=== PATIENT | male | born 1980 | race Hispanic/Latino ===

== ENCOUNTER 2018-10-27 13:30 | Outpatient (CLI) | payer BC ==
--- NOTE | 2018-10-27 14:54 | RAD ---
LUMBAR SPINE MINIMUM 4 VIEWS: HISTORY: M54.16, lumbar radiculopathy; M54.5, low back pain. COMPARISON: MRI same day. FINDINGS: No acute fracture or malalignment. Vertebral body heights and disk spaces are maintained. No listhe sis. No translation with flexion or extension. IMPRESSION: Unremarkable exam. POS: [facility]
--- NOTE | 2018-10-27 15:27 | MRI ---
MRI LUMBAR SPINE WITHOUT IV CONTRAST: DATE: 10/27/2018. HISTORY: Lumbar radiculopathy. The patient states bilateral leg weakness following a 3-hour flight. COMPARISON: None available. FINDINGS: Visualized retroperitoneal structures demonstrate a normal MRI appearance. Conus medullaris is normal in appearance and terminates at the T12-L1 level. Normal signal intensity is demonstrated in the bone marrow. L1-2 level: There is no disk bulge or disk herniation. Central spinal canal and neural foramen are patent. L2-3 level: There is no disk bulge or disk herniation. Central spinal canal and neural foramen are patent. L3-4 level: There is no disk bulge or disk herniation. Central spinal canal and neural foramen are patent. L4-5 level: There is no disk bulge or disk herniation. Central spinal canal and neural foramen are patent. L5-S1 level: There is no disk bulge or disk herniation. Central spinal canal and neural foramen are patent. Facet hypertrophic changes are seen bilaterally and there are increased T2 weighted signal intensity foci seen posterior to each facet joint measuring less than 1 cm and are likely attributabl e to synovial cysts. There is generally small caliber of the central spinal canal secondary to congenitally short pedicles . Paravertebral soft tissues are within normal limits. 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 However, there is no significant i ntradural or extradural defect seen. Neural foramina are widely patent at all levels. POS: [facility]
== END 2018-10-27 13:31 | disposition home or self-care (01) ==
LOC: TBSIIMAG 13:30
PROVIDERS: ATTEND Physician Assistant Surgical
DX: M54.16 Radiculopathy, lumbar region (principal); M48.061 Spinal stenosis, lumbar region without neurogenic claudication
CPT/HCPCS: 72110; 72148

== ENCOUNTER 2021-12-27 15:30 | Outpatient (CLI) | payer BC | END 2021-12-27 15:31 | disposition home or self-care (01) | LOC: CTENTCT 15:30 | PROVIDERS: ATTEND Otolaryngology Plastic Surgery within the Head & Neck | DX: J32.9 Chronic sinusitis, unspecified (principal) | CPT/HCPCS: 70486 ==

== ENCOUNTER 2022-01-18 09:16 | Outpatient (CLI) | payer BC ==
[2022-01-18 16:01] LABS: SARS-CoV-2 PCR by NAA Not Detected (NotDetected)
== END 2022-01-18 09:17 | disposition home or self-care (01) ==
LOC: LABBT 09:16
PROVIDERS: ATTEND Otolaryngology Plastic Surgery within the Head & Neck
DX: Z01.818 Encounter for other preprocedural examination (principal); Z20.822 Contact with and (suspected) exposure to COVID-19
CPT/HCPCS: 93005; 93010; U0003; U0005

== ENCOUNTER 2022-01-23 07:52 | Day surgery (SDC) | payer BC ==
[2022-01-21 10:36] VITALS: BMI 35.4
[2022-01-23] MEDS ORDERED: AFRIN NASAL MIST 15 ML BOT ONE ×2 (09:00→09:43)
[2022-01-23] MEDS ORDERED: Lidocaine 1% w/Epinephrine 1:100K 20 ML VIAL ONE (09:43)
[2022-01-23] MEDS ORDERED: Midazolam HCl 2 mg/2 ml Vial ONE (09:46)
[2022-01-23] MEDS ORDERED: fentaNYL Citrate/PF 100 MCG/2 ML SYRINGE ONE ×3 (09:46→11:24)
[2022-01-23] MEDS ORDERED: Dexamethasone 20 MG/5 ML VIAL ONE (10:12)
[2022-01-23] MEDS ORDERED: PROPOFOL 200 MG/20 ML VIAL ONE (10:12)
[2022-01-23] MEDS ORDERED: PHENYLEPHRINE-NS 100 MCG/ML 10 ML SYRINGE ONE (10:12)
[2022-01-23] MEDS ORDERED: Ondansetron PF 4 MG/2 ML Vial ONE (10:12)
[2022-01-23] MEDS ORDERED: Lidocaine 1% PF 5 ML VIAL ONE (10:12)
== END 2022-01-23 13:05 | disposition home or self-care (01) ==
LOC: SDC 07:52
PROVIDERS: ATTEND Otolaryngology Plastic Surgery within the Head & Neck
PROC: 09BT8ZZ Excision of Left Frontal Sinus, Via Natural or Artificial Opening Endoscopic (ICD-10-PCS; principal; 2022-01-23)
PROC: 09TV8ZZ Resection of Left Ethmoid Sinus, Via Natural or Artificial Opening Endoscopic (ICD-10-PCS; principal; 2022-01-23)
PROC: 099X8ZZ Drainage of Left Sphenoid Sinus, Via Natural or Artificial Opening Endoscopic (ICD-10-PCS; principal; 2022-01-23)
PROC: 099W8ZZ Drainage of Right Sphenoid Sinus, Via Natural or Artificial Opening Endoscopic (ICD-10-PCS; principal; 2022-01-23)
PROC: 8E09XBZ Computer Assisted Procedure of Head and Neck Region (ICD-10-PCS; principal; 2022-01-23)
PROC: 09SM0ZZ Reposition Nasal Septum, Open Approach (ICD-10-PCS; principal; 2022-01-23)
PROC: 099Q8ZZ Drainage of Right Maxillary Sinus, Via Natural or Artificial Opening Endoscopic (ICD-10-PCS; principal; 2022-01-23)
PROC: 099R8ZZ Drainage of Left Maxillary Sinus, Via Natural or Artificial Opening Endoscopic (ICD-10-PCS; principal; 2022-01-23)
PROC: 09TU8ZZ Resection of Right Ethmoid Sinus, Via Natural or Artificial Opening Endoscopic (ICD-10-PCS; principal; 2022-01-23)
PROC: 099S8ZZ Drainage of Right Frontal Sinus, Via Natural or Artificial Opening Endoscopic (ICD-10-PCS; principal; 2022-01-23)
PROC: 09TL0ZZ Resection of Nasal Turbinate, Open Approach (ICD-10-PCS; principal; 2022-01-23)
DX: J32.4 Chronic pansinusitis (principal); J33.8 Other polyp of sinus; J34.2 Deviated nasal septum; J34.3 Hypertrophy of nasal turbinates; J34.89 Other specified disorders of nose and nasal sinuses; G50.1 Atypical facial pain; G35 Multiple sclerosis; Z86.16 Personal history of COVID-19; Z79.2 Long term (current) use of antibiotics; Z79.899 Other long term (current) drug therapy; Z91.013 Allergy to seafood
CPT/HCPCS: J1100; J2250; J2405; J2704

== ENCOUNTER 2023-04-04 19:01 | Inpatient (IN) | payer BC ==
[2023-04-04 20:06] LABS: #Eosinphils 0.2 thou/uL (0.0-0.7); #Monocytes 0.6 thou/uL (0.11-0.59); #Neutrophils 5.1 thou/uL (1.40-6.50); %Basophils 0.6 % (0.0-1.0); %Eosinophils 2.6 % (0.0-10.0); %Lymphocytes 8.6 % (21.0-51.0); %Monocytes 9.7 % (0.0-10.0); %Neutrophils 77.6 % (42.0-75.0); Hemoglobin 15.2 g/dL (14.0-18.0); Mean Corpuscular Hemoglobin 28.7 pg (27.0-31.0); Mean Corpuscular Volume 84.3 fl (78.0-98.0); Mean Platelet Volume 9.2 fL (7.4-10.4); Platelet Count 254 10x3/uL (130-400); RBC Distribution Width 14.5 % (11.5-14.5); White Blood Cell (WBC) Count 6.6 10x3/uL (4.8-10.8)
[2023-04-04 20:18] LABS: Actual Bicarbonate (HCO3v) 23.8 mEq/L (22-28); Base Excess -1.3 mEq/L (-2.0 to +3.0); Calcium, Ionized (venous) 1.05 mmol/L (1.16-1.32); Chloride (VBG) 95 mmol/L (98-106); Hematocrit-VBG 47 % (42.0-52.0); Potassium (VBG) 3.65 mmol/L (3.70-5.30); Sodium 132.2 mmol/L (133-146); pH (venous) 7.381 (7.32-7.43)
[2023-04-04 20:30] LABS: Acetaminophen Less than 10 mcg/mL (10.0-30.0); Alcohol Less than 10.0 mg/dL (Less than 10); Salicylate Less than 8.0 mg/dL (15.0-30.0)
[2023-04-04 20:31] LABS: ALT (SGPT) 81 U/L (8-55); AST (SGOT) 45 U/L (5-34); Albumin 3.9 g/dL (3.5-5.0); Alkaline Phosphatase 74 U/L (40-110); Anion Gap 16 mmol/L (10-20); BUN (Urea Nitrogen) 12 mg/dL (8.9-20.6); Bilirubin, Total 0.3 mg/dL (0.2-1.2); Calc. Creatinine Clearance 0 mL/min (70-130); Calcium 8.4 mg/dL (7.8-10.44); Carbon Dioxide 23 mmol/L (22-29); Chloride 97 mmol/L (98-107); Estimated GFR 109; Globulin 2.9 g/dL (2.4-3.5); Glucose 210 mg/dL (70-105); Potassium 4.4 mmol/L (3.5-5.1); Protein, Total 6.8 g/dL (6.0-8.3); Sodium 132 mmol/L (136-145)
[2023-04-04] MEDS ORDERED: LEVETIRACETAM SLOW IVP SCH (20:45)
[2023-04-04] MEDS ORDERED: SODIUM CHLORIDE 0.9% SLOW IVP SCH (20:45)
[2023-04-04 21:42] LABS: Bacteria/HPF None Seen HPF (None Seen); Bilirubin Negative (Negative); Blood, Urine Negative (Negative); CAUTI Indications for Culture Alt mental st,lethar; Clarity Clear (Clear); Glucose, Urine (Dipstick) Greater than 1000 mg/dL (Negative); Ketone, Urine Trace mg/dL (Negative); Leukocyte Negative Leu/uL (Negative); Nitrite Negative (Negative); Protein, Urine (Dipstick) 30 mg/dL (Neg-Trace); RBC/HPF 0-3 HPF (0-3); Specific Gravity, Urine 1.019 (1.002-1.036); Squamous Epithelial None Seen HPF (0-3); Urobilinogen Normal mg/dL (Less than 2); WBC/HPF 0-3 HPF (0-3); pH, Urine 6.5 (5.0-9.0)
[2023-04-04 21:45] LABS: Amphetamine Not Detected (NotDetected); Barbiturates Screen Not Detected (NotDetected); Benzodiazepine Screen Detected (NotDetected); Cocaine Metabolite Screen Not Detected (NotDetected); Methadone Not Detected (NotDetected); Methamphetamine Not Detected (NotDetected); Opiate Screen Not Detected (NotDetected); Oxycodone Screen Not Detected (NotDetected); Phencyclidine (PCP) Not Detected (NotDetected); THC/Cannabinoid Screen Not Detected (NotDetected); Tricyclic Screen Not Detected (NotDetected)
[2023-04-04 21:46] LABS: Urine Culture Reflex No No
[2023-04-04] MEDS ORDERED: Acetaminophen 325 MG TAB PO PRN (23:16)
[2023-04-04] MEDS ORDERED: Ondansetron PF 4 MG/2 ML Vial IVP PRN (23:16)
[2023-04-04] MEDS ORDERED: Lorazepam 2 MG/ML VIAL SLOW IVP PRN ×2 (23:17→23:29)
[2023-04-05] MEDS ORDERED: Dexamethasone 4 MG TAB PO SCH ×2 (00:15→09:00)
[2023-04-05 01:23] VITALS: BMI 36.7
[2023-04-05] MEDS ORDERED: HumaLOG 300 UNITS/3 ML VIAL SC PRN ×2 (04:11)
[2023-04-05] MEDS ORDERED: Glucagon 1 MG/ML KIT IM PRN (04:11)
[2023-04-05] MEDS ORDERED: Dextrose 5% in Water 1,000 ML IV PRN (04:11)
[2023-04-05] MEDS ORDERED: Dextrose 50% Abboject 50 ML SYRINGE SLOW IVP PRN (04:11)
[2023-04-05 05:42] LABS: #Eosinphils 0.1 thou/uL (0.0-0.7); #Monocytes 0.7 thou/uL (0.11-0.59); #Neutrophils 5.4 thou/uL (1.40-6.50); %Basophils 0.5 % (0.0-1.0); %Eosinophils 0.9 % (0.0-10.0); %Lymphocytes 6.8 % (21.0-51.0); %Monocytes 10.3 % (0.0-10.0); Hemoglobin 15.2 g/dL (14.0-18.0); Mean Corpuscular HGB CONC 33.9 g/dL (32.0-36.0); Mean Corpuscular Hemoglobin 28.7 pg (27.0-31.0); Mean Corpuscular Volume 84.5 fl (78.0-98.0); Mean Platelet Volume 9.3 fL (7.4-10.4); Platelet Count 249 10x3/uL (130-400); RBC Distribution Width 14.5 % (11.5-14.5); White Blood Cell (WBC) Count 6.6 10x3/uL (4.8-10.8)
[2023-04-05 05:58] LABS: Hemoglobin A1c 8.3 % (4.0-6.0)
[2023-04-05 06:10] LABS: Anion Gap 12 mmol/L (10-20); BUN (Urea Nitrogen) 9 mg/dL (8.9-20.6); Calc. Creatinine Clearance 217 mL/min (70-130); Calcium 8.7 mg/dL (7.8-10.44); Carbon Dioxide 24 mmol/L (22-29); Chloride 101 mmol/L (98-107); Estimated GFR 117; Glucose 174 mg/dL (70-105); Potassium 3.9 mmol/L (3.5-5.1); Sodium 133 mmol/L (136-145)
[2023-04-05 06:13] LABS: ALT (SGPT) 76 U/L (8-55); AST (SGOT) 39 U/L (5-34); Albumin 3.9 g/dL (3.5-5.0); Alkaline Phosphatase 67 U/L (40-110); Bilirubin, Direct 0.2 mg/dL (0.1-0.3); Bilirubin, Total 0.4 mg/dL (0.2-1.2)
[2023-04-05] MEDS: levETIRAcetam 500 MG TAB PO SCH ×2 (09:05→21:17)
[2023-04-05] MEDS ORDERED: Sodium Chloride 0.9% 1,000 ML IV SCH (11:15)
[2023-04-05] MEDS ORDERED: Iopamidol-370 76% 500 ML MDV (1 ML CHARGE) ONE (11:57)
[2023-04-05 16:23] LABS: CSF, Glucose 81 mg/dl (40-70); CSF, Protein 93 mg/dL (15-40)
[2023-04-05 17:01] LABS: Ref Lab Test Ordered ACE CSF; Reference Lab Name LABCORP
[2023-04-05 17:08] LABS: CSF Source CSF; Clarity Clear (Clear); Tube # 4
[2023-04-05 18:07] LABS: Ref Lab Test Ordered CMV PCR CSF; Reference Lab Name LABCORP
[2023-04-06 06:01] LABS: #Monocytes 0.8 thou/uL (0.11-0.59); #Neutrophils 5.7 thou/uL (1.40-6.50); %Basophils 0.3 % (0.0-1.0); %Eosinophils 0.4 % (0.0-10.0); %Lymphocytes 11.3 % (21.0-51.0); %Monocytes 10.3 % (0.0-10.0); %Neutrophils 77.3 % (42.0-75.0); Hemoglobin 14.8 g/dL (14.0-18.0); Mean Corpuscular HGB CONC 34.3 g/dL (32.0-36.0); Mean Corpuscular Hemoglobin 28.9 pg (27.0-31.0); Mean Corpuscular Volume 84.2 fl (78.0-98.0); Mean Platelet Volume 9.2 fL (7.4-10.4); Platelet Count 263 10x3/uL (130-400); RBC Distribution Width 14.6 % (11.5-14.5); Red Blood Cell (RBC) Count 5.12 mill/uL (4.70-6.10); White Blood Cell (WBC) Count 7.4 10x3/uL (4.8-10.8)
[2023-04-06 06:25] LABS: Anion Gap 9 mmol/L (10-20); BUN (Urea Nitrogen) 10 mg/dL (8.9-20.6); Calc. Creatinine Clearance 226 mL/min (70-130); Calcium 8.7 mg/dL (7.8-10.44); Carbon Dioxide 26 mmol/L (22-29); Chloride 102 mmol/L (98-107); Estimated GFR 119; Glucose 170 mg/dL (70-105); Potassium 3.9 mmol/L (3.5-5.1); Sodium 133 mmol/L (136-145)
[2023-04-06] MEDS: levETIRAcetam 500 MG TAB PO SCH ×2 (10:30→21:38)
[2023-04-06 12:54] LABS: Ref Lab Test Ordered MTB DNA PCR CSF; Reference Lab Name LABCORP
[2023-04-07 04:59] LABS: #Basophils 0.1 thou/uL (0.0-0.2); #Eosinphils 0.2 thou/uL (0.0-0.7); #Monocytes 0.8 thou/uL (0.11-0.59); #Neutrophils 4.3 thou/uL (1.40-6.50); %Basophils 0.8 % (0.0-1.0); %Lymphocytes 11.7 % (21.0-51.0); %Monocytes 12.7 % (0.0-10.0); Hemoglobin 15.1 g/dL (14.0-18.0); Mean Corpuscular HGB CONC 33.7 g/dL (32.0-36.0); Mean Platelet Volume 9.4 fL (7.4-10.4); Platelet Count 285 10x3/uL (130-400); RBC Distribution Width 14.9 % (11.5-14.5); Red Blood Cell (RBC) Count 5.21 mill/uL (4.70-6.10); White Blood Cell (WBC) Count 6.1 10x3/uL (4.8-10.8)
[2023-04-07 05:30] LABS: Anion Gap 11 mmol/L (10-20); BUN (Urea Nitrogen) 10 mg/dL (8.9-20.6); Calc. Creatinine Clearance 220 mL/min (70-130); Calcium 8.8 mg/dL (7.8-10.44); Carbon Dioxide 25 mmol/L (22-29); Chloride 101 mmol/L (98-107); Estimated GFR 118; Glucose 135 mg/dL (70-105); Potassium 3.5 mmol/L (3.5-5.1); Sodium 133 mmol/L (136-145)
[2023-04-07] MEDS: levETIRAcetam 500 MG TAB PO SCH ×2 (10:56→20:38)
[2023-04-08] MEDS: levETIRAcetam 500 MG TAB PO SCH ×2 (08:37→21:10)
[2023-04-09 01:13] LABS: CMV DNA-PCR Test Negative (Negative)
[2023-04-09] MEDS: levETIRAcetam 500 MG TAB PO SCH ×2 (10:28→21:17)
[2023-04-09 12:38] LABS: ANA Symphony (Qualitative) Negative (Negative); ANA Symphony (Quantitative) 0.3 Ratio (< 0.7 Negative); dsDNA IgG Antibody Less than 0.6 IU/mL (<10 Negative)
[2023-04-09] MEDS ORDERED: Sodium Bicarbonate 2.5 MEQ/5 ML VIAL ONE (13:30)
[2023-04-09 14:12] LABS: QuantiFERON-TB Gold Plus Negative (Negative)
[2023-04-09 16:31] LABS: CSF Source CSF; Clarity Clear (Clear); Tube # 2
[2023-04-10] MEDS: levETIRAcetam 500 MG TAB PO SCH (09:23)
[2023-04-10 16:20] VITALS: BP 147/94; TEMP 98.9
== END 2023-04-10 18:11 | disposition home or self-care (01) | DRG 97 ==
LOC: ERS 19:01 → 2SE 22:22 → OBSVTOIN 04-05 13:08
PROVIDERS: ADMIT Internal Medicine; ATTEND Family Medicine
PROC: 4A043R1 Measurement of Venous Saturation, Peripheral, Percutaneous Approach (ICD-10-PCS; 2023-04-04)
PROC: 009U3ZX Drainage of Spinal Canal, Percutaneous Approach, Diagnostic (ICD-10-PCS; principal; 2023-04-09)
PROC: B01BZZZ Fluoroscopy of Spinal Cord (ICD-10-PCS; 2023-04-09)
DX: G03.9 Meningitis, unspecified (principal); G93.6 Cerebral edema; H46.9 Unspecified optic neuritis; G35 Multiple sclerosis; H54.62 Unqualified visual loss, left eye, normal vision right eye; R59.0 Localized enlarged lymph nodes; E11.65 Type 2 diabetes mellitus with hyperglycemia; Z91.013 Allergy to seafood; Z88.8 Allergy status to other drugs, medicaments and biological substances; Z80.51 Family history of malignant neoplasm of kidney; Z79.899 Other long term (current) drug therapy; G40.409 Other generalized epilepsy and epileptic syndromes, not intractable, without status epilepticus
CPT/HCPCS: 36415; 36416; 62270; 70450; 71045; 71260; 74177; 80048; 80053; 80076; 80306; 80307; 81001; 82164; 82175; 82787; 82805; 82945; 83036; 83655; 83825; 83873; 83880; 83916; 84157; 85025; 85652; 86038; 86140; 86160; 86225; 86480; 86592; 86612; 86635; 86698; 87070; 87116; 87205; 87206; 87252; 87497; 87529; 87899; 88112; 88184; 89051; 93005; 96365; J1815; J1953; J3490; J7050; J8540; Q9967

== ENCOUNTER 2023-04-25 09:16 | Outpatient (CLI) | payer BC ==
[2023-04-25] MEDS ORDERED: Magnevist 469MG/ML 20 ML VIAL ONE (11:30)
== END 2023-04-25 09:17 | disposition home or self-care (01) ==
LOC: MRI 09:16
PROVIDERS: ATTEND Neurological Surgery
DX: D49.6 Neoplasm of unspecified behavior of brain (principal)
CPT/HCPCS: 70553; A9579

== ENCOUNTER 2023-04-28 07:44 | Inpatient (IN) | payer BC ==
[2023-04-28] MEDS ORDERED: Bacitracin Zinc Ointment 30 gm TUBE ONE (08:51)
[2023-04-28] MEDS ORDERED: Vancomycin 1 GM VIAL ONE (08:51)
[2023-04-28] MEDS ORDERED: Thrombin 5000 UNITS/5 ML VIAL ONE (08:51)
[2023-04-28] MEDS ORDERED: Lidocaine 1% (PF) 30 ML VIAL ONE (08:51)
[2023-04-28] MEDS ORDERED: EPINEPHrine 1 MG/ML AMP ONE (08:51)
[2023-04-28] MEDS ORDERED: HYDROcodone/Acetaminophen 7.5/325 mg Tablet PO PRN (09:18)
[2023-04-28] MEDS ORDERED: Acetaminophen 325 MG TAB PO PRN (09:18)
[2023-04-28] MEDS ORDERED: Docusate 100 MG CAP PO PRN (09:18)
[2023-04-28] MEDS ORDERED: diphenhydrAMINE 50 MG/ML VIAL IVP PRN (09:18)
[2023-04-28] MEDS ORDERED: Promethazine HCl 25 MG/ML VIAL IM PRN (09:18)
[2023-04-28] MEDS ORDERED: Labetalol HCl 100 MG/20 ML VIAL SLOW IVP PRN ×2 (09:18→09:41)
[2023-04-28] MEDS ORDERED: Ondansetron PF 4 MG/2 ML Vial IVP PRN (09:18)
[2023-04-28] MEDS ORDERED: hydrALAZINE 20 MG/ML VIAL SLOW IVP PRN (09:18)
[2023-04-28] MEDS ORDERED: fentaNYL PF 100 MCG/2 ML SYRINGE ONE (09:40)
[2023-04-28] MEDS ORDERED: CEFAZOLIN 2 GM VIAL ONE (09:50)
[2023-04-28] MEDS ORDERED: Sodium Chloride 0.9% 100 ML ONE (09:50)
[2023-04-28] MEDS ORDERED: Ondansetron PF 4 MG/2 ML Vial ONE (10:10)
[2023-04-28] MEDS ORDERED: Lidocaine 1% PF 5 ML VIAL ONE (10:10)
[2023-04-28] MEDS ORDERED: Dexamethasone 20 MG/5 ML VIAL ONE (10:10)
[2023-04-28] MEDS ORDERED: PROPOFOL 200 MG/20 ML VIAL ONE (10:10)
[2023-04-28] MEDS ORDERED: Rocuronium Bromide 10 MG/ML (10ML VIAL) ONE ×2 (10:10)
[2023-04-28] MEDS ORDERED: Phenylephrine 10 MG/ML VIAL ONE (11:42)
[2023-04-28] MEDS ORDERED: fentaNYL 50 mcg/mL 1 mL Vial ONE ×3 (12:32→14:09)
[2023-04-28] MEDS ORDERED: SUGAMMADEX SODIUM 200 MG/2 ML VIAL ONE (13:15)
[2023-04-28] MEDS: Sodium Chloride 0.9% 1,000 ML IV SCH ×2 (14:26→16:20)
[2023-04-28 15:40] VITALS: BMI 36.1
[2023-04-28] MEDS: HYDROcodone/Acetaminophen 10/325 mg Tablet PO PRN ×2 (16:44→21:13)
[2023-04-28] MEDS: CEFAZOLIN 2 GM in Sodium Chloride 0.9% 100 ML IVPB SCH (17:31)
[2023-04-28] MEDS: hydrALAZINE 20 MG/ML VIAL SLOW IVP PRN ×2 (17:51→21:49)
[2023-04-28] MEDS: Morphine 2 MG/ML VIAL SLOW IVP PRN (19:48)
[2023-04-28] MEDS: levETIRAcetam 500 MG TAB PO SCH (21:13)
[2023-04-28] MEDS ORDERED: Dextrose 50% Abboject 50 ML SYRINGE SLOW IVP PRN (22:09)
[2023-04-28] MEDS ORDERED: HumaLOG 300 UNITS/3 ML VIAL SC PRN (22:09)
[2023-04-28] MEDS ORDERED: Glucagon 1 MG/ML KIT IM PRN (22:09)
[2023-04-28] MEDS ORDERED: Dextrose 5% in Water 1,000 ML IV PRN (22:09)
[2023-04-29] MEDS: Morphine 2 MG/ML VIAL SLOW IVP PRN (00:14)
[2023-04-29] MEDS: CEFAZOLIN 2 GM in Sodium Chloride 0.9% 100 ML IVPB SCH (02:07)
[2023-04-29] MEDS: HYDROcodone/Acetaminophen 10/325 mg Tablet PO PRN (06:16)
[2023-04-29 07:23] LABS: #Monocytes 1.5 thou/uL (0.11-0.59); #Neutrophils 7.3 thou/uL (1.40-6.50); %Basophils 0.3 % (0.0-1.0); %Eosinophils 0.3 % (0.0-10.0); %Lymphocytes 7.5 % (21.0-51.0); %Monocytes 15.3 % (0.0-10.0); %Neutrophils 76.3 % (42.0-75.0); Hematocrit 42.4 % (42.0-52.0); Hemoglobin 14.4 g/dL (14.0-18.0); Mean Corpuscular Hemoglobin 28.8 pg (27.0-31.0); Mean Corpuscular Volume 84.8 fl (78.0-98.0); Mean Platelet Volume 9.2 fL (7.4-10.4); Platelet Count 241 10x3/uL (130-400); RBC Distribution Width 14.9 % (11.5-14.5); White Blood Cell (WBC) Count 9.6 10x3/uL (4.8-10.8)
[2023-04-29 07:40] LABS: Hemoglobin A1c 7.6 % (4.0-6.0)
[2023-04-29 07:45] LABS: Anion Gap 12 mmol/L (10-20); BUN (Urea Nitrogen) 9 mg/dL (8.9-20.6); Calc. Creatinine Clearance 233 mL/min (70-130); Calcium 8.7 mg/dL (7.8-10.44); Carbon Dioxide 22 mmol/L (22-29); Chloride 103 mmol/L (98-107); Estimated GFR 121; Glucose 111 mg/dL (70-105); Potassium 3.8 mmol/L (3.5-5.1); Sodium 133 mmol/L (136-145)
[2023-04-29] MEDS: levETIRAcetam 500 MG TAB PO SCH (08:33)
[2023-04-29 09:52] VITALS: BP 110/74
[2023-04-29 12:26] VITALS: TEMP 98.8
== END 2023-04-29 12:25 | disposition home or self-care (01) | DRG 26 ==
LOC: SURG A 07:44 → CCU 14:32
PROVIDERS: ADMIT Neurological Surgery; ATTEND Neurological Surgery
PROC: 00B00ZX Excision of Brain, Open Approach, Diagnostic (ICD-10-PCS; principal; 2023-04-28)
DX: G03.9 Meningitis, unspecified (principal); G82.20 Paraplegia, unspecified; G35 Multiple sclerosis; Z79.899 Other long term (current) drug therapy; E11.9 Type 2 diabetes mellitus without complications; G89.29 Other chronic pain; Z98.890 Other specified postprocedural states; Z82.49 Family history of ischemic heart disease and other diseases of the circulatory system; G40.909 Epilepsy, unspecified, not intractable, without status epilepticus; G43.909 Migraine, unspecified, not intractable, without status migrainosus; D49.6 Neoplasm of unspecified behavior of brain
CPT/HCPCS: 36415; 36416; 70553; 80048; 83036; 85025; 87070; 87102; 87116; 87205; 87206; 88307; 88312; 88325; A9579; C1713; J0171; J0360; J1100; J2001; J2272; J2370; J2405; J2704; J3010; J3370; J3490; J7050

== ENCOUNTER 2024-02-04 11:44 | Outpatient (CLI) | payer BC | END 2024-02-04 11:45 | disposition home or self-care (01) | LOC: BICRAD 11:44 | PROVIDERS: ATTEND Family Medicine | DX: J20.9 Acute bronchitis, unspecified (principal) | CPT/HCPCS: 71046 ==

== ENCOUNTER 2024-02-28 14:51 | Inpatient (IN) | payer BC ==
[2024-02-28] MEDS ORDERED: Meclizine HCl 25 MG TAB ONE (16:07)
[2024-02-28 16:15] LABS: #Basophils Less than 0.03 10x3/uL (0.0-0.2); %Basophils 0.4 % (0.0-1.0); %Lymphocytes 17.3 % (21.0-51.0); %Monocytes 14.6 % (0.0-10.0); %Neutrophils 64.1 % (42.0-75.0); Hematocrit 43.9 % (42.0-52.0); Hemoglobin 15.5 g/dL (14.0-18.0); Mean Corpuscular HGB CONC 35.3 g/dL (32.0-36.0); Mean Corpuscular Volume 85.1 fL (78.0-98.0); Mean Platelet Volume 9.1 fL (7.4-10.4); Platelet Count 225 10x3/uL (130-400); Red Blood Cell (RBC) Count 5.16 mill/uL (4.70-6.10)
[2024-02-28 16:29] LABS: ALT (SGPT) 45 U/L (8-55); AST (SGOT) 23 U/L (5-34); Albumin 3.7 g/dL (3.5-5.0); Alkaline Phosphatase 55 U/L (40-110); Anion Gap 16 mmol/L (10-20); BUN (Urea Nitrogen) 16 mg/dL (8.9-20.6); Bilirubin, Total 0.4 mg/dL (0.2-1.2); Calc. Creatinine Clearance 0 mL/min (70-130); Calcium 8.9 mg/dL (7.8-10.44); Carbon Dioxide 21 mmol/L (22-29); Chloride 100 mmol/L (98-107); Estimated GFR 113; Globulin 3.5 g/dL (2.4-3.5); Glucose 109 mg/dL (70-105); Potassium 3.4 mmol/L (3.5-5.1); Protein, Total 7.2 g/dL (6.0-8.3); Sodium 134 mmol/L (136-145)
[2024-02-28] MEDS ORDERED: LORazepam 2 MG/ML SYR.(CARPUJECT) ONE (18:46)
[2024-02-28] MEDS ORDERED: Ondansetron PF 4 MG/2 ML Vial IVP PRN (21:00)
[2024-02-28] MEDS ORDERED: Acetaminophen 325 MG TAB PO PRN (21:00)
[2024-02-28] MEDS ORDERED: Ondansetron ODT 4 MG TAB SL PRN (21:00)
[2024-02-28 21:08] LABS: Bacteria/HPF None Seen HPF (None Seen); Bilirubin Negative (Negative); Blood, Urine Negative (Negative); CAUTI Indications for Culture Alt mental st,lethar; Clarity Clear (Clear); Glucose, Urine (Dipstick) Normal (Negative); Ketone, Urine 10 mg/dL (Negative); Leukocyte Negative Leu/uL (Negative); Nitrite Negative (Negative); Protein, Urine (Dipstick) Negative (Neg-Trace); RBC/HPF None Seen HPF (0-3); Specific Gravity, Urine 1.006 (1.002-1.036); Squamous Epithelial None Seen HPF (0-3); Urobilinogen Normal mg/dL (Less than 2); WBC/HPF None Seen HPF (0-3); pH, Urine 6.5 (5.0-9.0)
[2024-02-28 21:10] LABS: Urine Culture Reflex No No
[2024-02-28] MEDS ORDERED: Calcium Carbonate 500 MG ChewTAB PO PRN (21:25)
[2024-02-28] MEDS ORDERED: Acetaminophen 650 MG Suppository PR PRN (21:25)
[2024-02-28] MEDS ORDERED: Meclizine HCl 12.5 MG TAB PO PRN (21:31)
[2024-02-28 22:11] VITALS: BMI 31.1
[2024-02-28 22:55] LABS: Magnesium 2.1 mg/dL (1.6-2.6); Phosphorus 3.1 mg/dL (2.3-4.7)
[2024-02-29] MEDS: Potassium Chloride 20 MEQ in Premix 1 BAG IVPB SCH (00:56)
[2024-02-29 05:56] LABS: #Basophils 0.03 10x3/uL (0.0-0.2); %Basophils 0.6 % (0.0-1.0); %Eosinophils 2.2 % (0.0-10.0); %Monocytes 16.3 % (0.0-10.0); %Neutrophils 60.7 % (42.0-75.0); Hematocrit 44.7 % (42.0-52.0); Hemoglobin 15.6 g/dL (14.0-18.0); Mean Corpuscular HGB CONC 34.9 g/dL (32.0-36.0); Mean Corpuscular Hemoglobin 29.8 pg (27.0-31.0); Mean Corpuscular Volume 85.3 fL (78.0-98.0); Platelet Count 224 10x3/uL (130-400); RBC Distribution Width 15.2 % (11.5-14.5); Red Blood Cell (RBC) Count 5.24 mill/uL (4.70-6.10)
[2024-02-29 06:13] LABS: Anion Gap 13 mmol/L (10-20); BUN (Urea Nitrogen) 9 mg/dL (8.9-20.6); Calc. Creatinine Clearance 172 mL/min (70-130); Calcium 8.7 mg/dL (7.8-10.44); Carbon Dioxide 23 mmol/L (22-29); Chloride 104 mmol/L (98-107); Estimated GFR 114; Glucose 93 mg/dL (70-105); Potassium 3.6 mmol/L (3.5-5.1); Sodium 136 mmol/L (136-145)
[2024-02-29] MEDS: Folic Acid 1 MG TAB PO SCH (08:35)
[2024-02-29] MEDS ORDERED: levETIRAcetam 500 MG TAB PO SCH (09:00)
[2024-02-29] MEDS: LORazepam 2 MG/ML SYR.(CARPUJECT) SLOW IVP SCH (11:21)
[2024-02-29] MEDS: Amlodipine 5 MG TAB PO SCH (12:31)
[2024-02-29] MEDS: Aspirin Chewable 81 MG TAB PO SCH (15:55)
[2024-02-29] MEDS: Atorvastatin Calcium 40 MG TAB PO SCH (20:54)
[2024-02-29] MEDS: levETIRAcetam 500 MG TAB PO SCH (20:54)
[2024-03-01 04:52] LABS: #Basophils Less than 0.03 10x3/uL (0.0-0.2); %Basophils 0.4 % (0.0-1.0); %Eosinophils 3.3 % (0.0-10.0); %Lymphocytes 21.2 % (21.0-51.0); %Monocytes 15.8 % (0.0-10.0); %Neutrophils 58.7 % (42.0-75.0); Hematocrit 42.8 % (42.0-52.0); Hemoglobin 14.9 g/dL (14.0-18.0); Mean Corpuscular HGB CONC 34.8 g/dL (32.0-36.0); Mean Corpuscular Hemoglobin 30.6 pg (27.0-31.0); Mean Corpuscular Volume 87.9 fL (78.0-98.0); Platelet Count 224 10x3/uL (130-400); RBC Distribution Width 15.2 % (11.5-14.5); Red Blood Cell (RBC) Count 4.87 mill/uL (4.70-6.10)
[2024-03-01 05:36] LABS: Anion Gap 15 mmol/L (10-20); BUN (Urea Nitrogen) 16 mg/dL (8.9-20.6); Calc. Creatinine Clearance 162 mL/min (70-130); Calcium 8.9 mg/dL (7.8-10.44); Carbon Dioxide 22 mmol/L (22-29); Cardiac Risk 5.1 (Less than 4.5); Chloride 99 mmol/L (98-107); Cholesterol 202 mg/dl (< 200 Desired); Estimated GFR 112; Glucose 99 mg/dL (70-105); HDL Cholesterol 40 mg/dL (>60 Neg Risk); LDL Cholesterol, Calculated 145 mg/dL; Potassium 3.5 mmol/L (3.5-5.1); Sodium 132 mmol/L (136-145); Triglycerides 84 mg/dL (Less than 150)
[2024-03-01] MEDS: Amlodipine 5 MG TAB PO SCH (09:31)
[2024-03-01] MEDS: Methotrexate Sodium 2.5 MG TAB PO SCH (18:33)
[2024-03-01] MEDS: Acetaminophen 325 MG TAB PO PRN (19:03)
[2024-03-02 06:33] LABS: #Basophils 0.03 10x3/uL (0.0-0.2); %Basophils 0.5 % (0.0-1.0); %Eosinophils 2.2 % (0.0-10.0); %Lymphocytes 14.6 % (21.0-51.0); %Neutrophils 69.2 % (42.0-75.0); Hematocrit 44.4 % (42.0-52.0); Hemoglobin 15.4 g/dL (14.0-18.0); Mean Corpuscular HGB CONC 34.7 g/dL (32.0-36.0); Mean Corpuscular Hemoglobin 29.9 pg (27.0-31.0); Mean Corpuscular Volume 86.2 fL (78.0-98.0); Mean Platelet Volume 8.9 fL (7.4-10.4); Platelet Count 224 10x3/uL (130-400); RBC Distribution Width 15.5 % (11.5-14.5); Red Blood Cell (RBC) Count 5.15 mill/uL (4.70-6.10)
[2024-03-02 06:48] LABS: Anion Gap 13 mmol/L (10-20); BUN (Urea Nitrogen) 12 mg/dL (8.9-20.6); Calc. Creatinine Clearance 179 mL/min (70-130); Carbon Dioxide 25 mmol/L (22-29); Chloride 100 mmol/L (98-107); Estimated GFR 115; Glucose 100 mg/dL (70-105); Potassium 3.4 mmol/L (3.5-5.1); Sodium 135 mmol/L (136-145)
[2024-03-02] MEDS: Potassium Chloride 20 MEQ in Premix 1 BAG IVPB SCH (09:59)
[2024-03-02 12:41] VITALS: BP 126/88; TEMP 97.7
== END 2024-03-02 15:44 | disposition home or self-care (01) | DRG 149 ==
LOC: ERS 14:51 → 2SE 20:47 → OBSVTOIN 02-29 13:58
PROVIDERS: ADMIT Family Medicine; ATTEND Family Medicine
DX: R42 Dizziness and giddiness (principal); D68.9 Coagulation defect, unspecified; G40.909 Epilepsy, unspecified, not intractable, without status epilepticus; E87.6 Hypokalemia; R94.31 Abnormal electrocardiogram [ECG] [EKG]; F40.240 Claustrophobia; R73.03 Prediabetes; R03.0 Elevated blood-pressure reading, without diagnosis of hypertension; R00.0 Tachycardia, unspecified; Z79.899 Other long term (current) drug therapy
CPT/HCPCS: 36415; 70450; 70553; 71045; 74230; 76377; 80048; 80053; 80061; 81001; 83735; 84100; 84443; 85025; 93005; 93010; 93306; 96375; G0378; J2060; J3480; J8610

== ENCOUNTER 2024-03-12 15:25 | Inpatient (IN) | payer BC ==
[2024-03-12] MEDS ORDERED: Iopamidol-370 76% 500 ML MDV (1 ML CHARGE) ONE (15:54)
[2024-03-12 16:07] LABS: Bacteria/HPF None Seen HPF (None Seen); Bilirubin Negative (Negative); Blood, Urine Negative (Negative); CAUTI Indications for Culture Alt mental st,lethar; Clarity Turbid (Clear); Glucose, Urine (Dipstick) Normal (Negative); Ketone, Urine Negative (Negative); Leukocyte Negative Leu/uL (Negative); Nitrite Negative (Negative); Protein, Urine (Dipstick) Negative (Neg-Trace); RBC/HPF 0-3 HPF (0-3); Specific Gravity, Urine 1.011 (1.002-1.036); Squamous Epithelial None Seen HPF (0-3); Urobilinogen 3 mg/dL (Less than 2); WBC/HPF None Seen HPF (0-3); pH, Urine 7.5 (5.0-9.0)
[2024-03-12 16:08] LABS: Urine Culture Reflex No No
[2024-03-12 16:22] LABS: #Basophils Less than 0.03 10x3/uL (0.0-0.2); %Basophils 0.6 % (0.0-1.0); %Eosinophils 2.5 % (0.0-10.0); %Lymphocytes 27.6 % (21.0-51.0); %Neutrophils 51.2 % (42.0-75.0); Hematocrit 44.7 % (42.0-52.0); Hemoglobin 15.5 g/dL (14.0-18.0); Mean Corpuscular HGB CONC 34.7 g/dL (32.0-36.0); Mean Corpuscular Hemoglobin 30.6 pg (27.0-31.0); Mean Corpuscular Volume 88.2 fL (78.0-98.0); Mean Platelet Volume 9.1 fL (7.4-10.4); Platelet Count 226 10x3/uL (130-400); RBC Distribution Width 14.9 % (11.5-14.5); Red Blood Cell (RBC) Count 5.07 mill/uL (4.70-6.10)
[2024-03-12 16:38] LABS: ALT (SGPT) 45 U/L (8-55); AST (SGOT) 25 U/L (5-34); Albumin 3.3 g/dL (3.5-5.0); Alkaline Phosphatase 55 U/L (40-110); Anion Gap 10 mmol/L (10-20); BUN (Urea Nitrogen) 8 mg/dL (8.9-20.6); Bilirubin, Total 0.4 mg/dL (0.2-1.2); Calc. Creatinine Clearance 0 mL/min (70-130); Calcium 8.8 mg/dL (7.8-10.44); Carbon Dioxide 27 mmol/L (22-29); Chloride 100 mmol/L (98-107); Estimated GFR 120; Globulin 3.6 g/dL (2.4-3.5); Glucose 91 mg/dL (70-105); Potassium 3.4 mmol/L (3.5-5.1); Protein, Total 6.9 g/dL (6.0-8.3); Sodium 134 mmol/L (136-145)
[2024-03-12 17:55] LABS: Anion Gap 11 mmol/L (10-20); BUN (Urea Nitrogen) 8 mg/dL (8.9-20.6); Calc. Creatinine Clearance 0 mL/min (70-130); Calcium 8.7 mg/dL (7.8-10.44); Carbon Dioxide 24 mmol/L (22-29); Chloride 102 mmol/L (98-107); Estimated GFR 121; Glucose 94 mg/dL (70-105); Potassium 3.4 mmol/L (3.5-5.1); Sodium 134 mmol/L (136-145)
[2024-03-12 17:58] LABS: Troponin I Less than 0.010 ng/mL (< 0.028)
[2024-03-12 18:48] LABS: PTT 29.6 sec (22.9-36.1)
[2024-03-12] MEDS ORDERED: Meclizine HCl 12.5 MG TAB PO PRN (19:14)
[2024-03-12 21:29] LABS: Hemoglobin A1c 6.4 % (4.0-6.0)
[2024-03-12 21:55] VITALS: BMI 31.4
[2024-03-12] MEDS: levETIRAcetam 500 MG TAB PO SCH (22:05)
[2024-03-12] MEDS: tiZANidine HCl 4 MG TAB PO SCH (22:05)
[2024-03-12] MEDS: Aspirin 325 mg Enteric Coated Tablet PO SCH (22:06)
[2024-03-12] MEDS: Lactated Ringer's 1,000 ML IV SCH (22:06)
[2024-03-12] MEDS: Atorvastatin Calcium 40 MG TAB PO SCH (22:06)
[2024-03-13] MEDS: Melatonin 3 MG TAB PO PRN (01:58)
[2024-03-13] MEDS: hydrOXYzine 25 MG TAB PO SCH (04:46)
[2024-03-13 05:14] LABS: Anion Gap 15 mmol/L (10-20); BUN (Urea Nitrogen) 7 mg/dL (8.9-20.6); Calc. Creatinine Clearance 206 mL/min (70-130); Carbon Dioxide 20 mmol/L (22-29); Chloride 100 mmol/L (98-107); Estimated GFR 120; Glucose 109 mg/dL (70-105); Potassium 3.7 mmol/L (3.5-5.1); Sodium 131 mmol/L (136-145)
[2024-03-13] MEDS: Amlodipine 5 MG TAB PO SCH (08:14)
[2024-03-13] MEDS: Aspirin Chewable 81 MG TAB PO SCH (08:14)
[2024-03-13] MEDS: Enoxaparin 40 MG (0.4 mL) SYRINGE SC SCH (08:15)
[2024-03-13] MEDS: Folic Acid 1 MG TAB PO SCH (08:15)
[2024-03-13] MEDS ORDERED: Lorazepam 2 MG/ML VIAL SLOW IVP PRN (10:00)
[2024-03-13] MEDS: LORazepam 2 MG/ML SYR.(CARPUJECT) IVP PRN (10:40)
[2024-03-13] MEDS: Sodium Chloride 0.9% 1,000 ML IV SCH (13:21)
[2024-03-13] MEDS ORDERED: Magnevist 469MG/ML 20 ML VIAL ONE (16:23)
[2024-03-13] MEDS: levETIRAcetam 500 MG (5 mL) VIAL SLOW IVP SCH (21:25)
[2024-03-14 04:46] LABS: #Basophils Less than 0.03 10x3/uL (0.0-0.2); %Basophils 0.4 % (0.0-1.0); %Eosinophils 0.8 % (0.0-10.0); %Monocytes 12.1 % (0.0-10.0); %Neutrophils 69.5 % (42.0-75.0); Hematocrit 42.9 % (42.0-52.0); Mean Corpuscular Volume 85.8 fL (78.0-98.0); Mean Platelet Volume 8.7 fL (7.4-10.4); Platelet Count 221 10x3/uL (130-400); RBC Distribution Width 14.8 % (11.5-14.5)
[2024-03-14 05:02] LABS: Anion Gap 13 mmol/L (10-20); BUN (Urea Nitrogen) 7 mg/dL (8.9-20.6); Calc. Creatinine Clearance 219 mL/min (70-130); Calcium 8.9 mg/dL (7.8-10.44); Carbon Dioxide 19 mmol/L (22-29); Chloride 102 mmol/L (98-107); Estimated GFR 122; Glucose 101 mg/dL (70-105); Potassium 3.6 mmol/L (3.5-5.1); Sodium 130 mmol/L (136-145)
[2024-03-14] MEDS: hydrALAZINE 20 MG/ML VIAL SLOW IVP PRN (12:46)
[2024-03-14] MEDS: levETIRAcetam 500 MG (5 mL) VIAL SLOW IVP SCH ×2 (13:38→22:05)
[2024-03-14] MEDS: Metoprolol Tartrate 5 MG (5 mL) VIAL IVP SCH (16:03)
[2024-03-14 16:43] LABS: PTT 36.9 sec (22.9-36.1); Prothrombin Time 13.4 sec (12.0-14.7)
[2024-03-14 16:58] LABS: HIV (1/2) Antibody/Antigen NONREACTIVE (NonReactive); HIV 1/2 INDEX 0.05 S/CO (<1.00)
[2024-03-15 04:01] LABS: #Basophils 0.03 10x3/uL (0.0-0.2); %Basophils 0.6 % (0.0-1.0); %Eosinophils 0.8 % (0.0-10.0); %Lymphocytes 21.8 % (21.0-51.0); %Monocytes 14.8 % (0.0-10.0); %Neutrophils 61.6 % (42.0-75.0); Hematocrit 42.5 % (42.0-52.0); Hemoglobin 14.9 g/dL (14.0-18.0); Mean Corpuscular HGB CONC 35.1 g/dL (32.0-36.0); Mean Corpuscular Hemoglobin 29.6 pg (27.0-31.0); Mean Corpuscular Volume 84.5 fL (78.0-98.0); Platelet Count 231 10x3/uL (130-400); Red Blood Cell (RBC) Count 5.03 mill/uL (4.70-6.10)
[2024-03-15 04:25] LABS: Anion Gap 13 mmol/L (10-20); BUN (Urea Nitrogen) 9 mg/dL (8.9-20.6); Calc. Creatinine Clearance 219 mL/min (70-130); Calcium 8.7 mg/dL (7.8-10.44); Carbon Dioxide 18 mmol/L (22-29); Chloride 103 mmol/L (98-107); Estimated GFR 122; Glucose 82 mg/dL (70-105); Potassium 3.3 mmol/L (3.5-5.1); Sodium 131 mmol/L (136-145)
[2024-03-15] MEDS ORDERED: Sodium Bicarbonate 2.5 MEQ/5 ML SDV ONE (06:37)
[2024-03-15] MEDS: Lorazepam 2 MG/ML VIAL SLOW IVP SCH (08:23)
[2024-03-15] MEDS ORDERED: Lorazepam 2 MG/ML VIAL SLOW IVP SCH ×2 (10:00→10:45)
[2024-03-15 10:03] LABS: CSF, Protein 119.5 mg/dL (15-40)
[2024-03-15 10:20] LABS: CSF Source CSF; Clarity Clear (Clear); Tube # 4
[2024-03-15 11:15] LABS: Lymphocytes 90 %; Segmented Neutrophils 10 %
[2024-03-15] MEDS: Aspirin 300 MG Suppository PR SCH (12:26)
[2024-03-15] MEDS: Electrolyte Replacement Protocol 1 EACH FS ONE (13:13)
[2024-03-15] MEDS ORDERED: Etomidate 40 MG (20 mL) VIAL ONE (13:20)
[2024-03-15] MEDS: Ampicillin 2 GM in Sodium Chloride 0.9% 100 ML IVPB SCH ×2 (13:53→17:51)
[2024-03-15] MEDS: cefTRIAXone\\ROCEPHIN 2 GM in Sodium Chloride 0.9% 100 ML IVPB SCH ×2 (13:53→14:00)
[2024-03-15] MEDS ORDERED: DEXTROSE 5% IVPB SCH (14:00)
[2024-03-15] MEDS ORDERED: Electrolyte Replacement Protocol FS PRN (14:00)
[2024-03-15] MEDS ORDERED: WATER IVPB SCH (14:00)
[2024-03-15] MEDS ORDERED: AMBISOME IVPB SCH (14:00)
[2024-03-15] MEDS: methylPREDNISolone Sod Succ 40 MG VIAL IVP SCH (14:01)
[2024-03-15] MEDS: Potassium Chloride 20 MEQ in Premix 1 BAG IVPB SCH (14:02)
[2024-03-15] MEDS: Propofol 1,000 MG/100 ML VIAL IV PRN (14:25)
[2024-03-15] MEDS: Lorazepam 2 MG/ML VIAL SLOW IVP PRN (14:35)
[2024-03-15] MEDS: Vancomycin (BATCH) 2.5 GM in Premix 1 BAG IVPB SCH (14:59)
[2024-03-15] MEDS ORDERED: Fentanyl BOLUS 250 ML IVPB PRN (15:00)
[2024-03-15] MEDS ORDERED: Fentanyl CADD 100 ML IV SCH (15:00)
[2024-03-15] MEDS ORDERED: Morphine 2 MG/ML VIAL SLOW IVP PRN (15:00)
[2024-03-15] MEDS ORDERED: Ventilator Sedation Protocol 1 EACH FS SCH (15:00)
[2024-03-15] MEDS ORDERED: Propofol BOLUS 1,000 MG/100 ML VIAL IV PRN (15:00)
[2024-03-15] MEDS: Propofol 1,000 MG/100 ML VIAL IV ONE (15:09)
[2024-03-15] MEDS: Lorazepam 2 MG/ML VIAL ONE (15:09)
[2024-03-15 15:14] LABS: Actual Bicarbonate (HCO3a) 18.8 mEq/L (22-28); Base Excess (BEa) -3.1 mEq/L (-2.0 to +3.0); CO2 Tension 26.2 mmHg (35.0-45.0); Calcium, Ionized (arterial) 1.11 mmol/L (1.12-1.30); Carboxyhemoglobin (COHb) 0.8 gm% (0.0-3.0); Hematocrit-ABG 44 % (42.0-52.0); Hemoglobin (Hb) 14.9 g/dL (14.0-18.0); O2 Tension (PaO2), arterial 110.9 mmHg (80.0-100.0); Potassium - ABG Lab 3.46 mmol/L (3.70-5.30); pH, Arterial 7.473 (7.35-7.45)
[2024-03-15] MEDS: Rifampin 300 MG CAP PO SCH (15:17)
[2024-03-15] MEDS: Ethambutol HCl 400 MG TAB PER TUBE SCH (15:17)
[2024-03-15] MEDS: Isoniazid 100 MG TAB PO SCH (15:17)
[2024-03-15] MEDS: pyridOXINE 50 MG (B6) TAB PER TUBE SCH (15:18)
[2024-03-15 15:23] LABS: Reference Lab Name LABCORP
[2024-03-15] MEDS: DEXTROSE IVPB SCH (16:13)
[2024-03-15] MEDS: WATER IVPB SCH (16:13)
[2024-03-15] MEDS: AMBISOME IVPB SCH (16:13)
[2024-03-15] MEDS: STERILE WATER IVPB SCH (16:13)
[2024-03-15] MEDS: WATER FS SCH (16:14)
[2024-03-15] MEDS: ADMIXTURE FEE FS SCH (16:14)
[2024-03-15] MEDS: DEXTROSE 5% FS SCH (16:14)
[2024-03-15 16:16] LABS: Puncture Site LRA
[2024-03-15] MEDS ORDERED: AMPicillin 2 GM in Sodium Chloride 0.9% 100 ML IVPB SCH (18:00)
[2024-03-15 21:29] LABS: Potassium 3.6 mmol/L (3.5-5.1)
[2024-03-15] MEDS: Vancomycin (BATCH) 1.25 GM in Premix 1 BAG IVPB SCH (23:04)
[2024-03-16 04:36] LABS: #Basophils Less than 0.03 10x3/uL (0.0-0.2); #Eosinphils Less than 0.03 10x3/uL (0.0-0.7); %Basophils 0.2 % (0.0-1.0); %Lymphocytes 7.4 % (21.0-51.0); %Monocytes 4.5 % (0.0-10.0); %Neutrophils 86.9 % (42.0-75.0); Hematocrit 42.1 % (42.0-52.0); Hemoglobin 14.6 g/dL (14.0-18.0); Mean Corpuscular HGB CONC 34.7 g/dL (32.0-36.0); Mean Corpuscular Hemoglobin 29.6 pg (27.0-31.0); Mean Corpuscular Volume 85.4 fL (78.0-98.0); Mean Platelet Volume 9.4 fL (7.4-10.4); Platelet Count 204 10x3/uL (130-400); RBC Distribution Width 14.7 % (11.5-14.5); Red Blood Cell (RBC) Count 4.93 mill/uL (4.70-6.10)
[2024-03-16 04:55] LABS: Vancomycin, Random 16.8 ug/mL (See Comment)
[2024-03-16 04:57] LABS: Anion Gap 10 mmol/L (10-20); BUN (Urea Nitrogen) 8 mg/dL (8.9-20.6); Calc. Creatinine Clearance 203 mL/min (70-130); Calcium 8.9 mg/dL (7.8-10.44); Carbon Dioxide 18 mmol/L (22-29); Chloride 111 mmol/L (98-107); Estimated GFR 119; Glucose 172 mg/dL (70-105); Potassium 3.3 mmol/L (3.5-5.1); Sodium 136 mmol/L (136-145)
[2024-03-16 07:12] LABS: Actual Bicarbonate (HCO3a) 19.3 mEq/L (22-28); Base Excess (BEa) -3.6 mEq/L (-2.0 to +3.0); CO2 Tension 30.3 mmHg (35.0-45.0); Calcium, Ionized (arterial) 1.19 mmol/L (1.12-1.30); Carboxyhemoglobin (COHb) 0.4 gm% (0.0-3.0); Hematocrit-ABG 49 % (42.0-52.0); Hemoglobin (Hb) 16.7 g/dL (14.0-18.0); O2 Tension (PaO2), arterial 135.5 mmHg (80.0-100.0); Potassium - ABG Lab 3.22 mmol/L (3.70-5.30); pH, Arterial 7.423 (7.35-7.45)
[2024-03-16 07:13] LABS: ALV-art Gradient 111.825 mmHg (0-20); Puncture Site RRA
[2024-03-16] MEDS: Potassium Chloride 20 MEQ in Premix 1 BAG IVPB SCH (08:06)
[2024-03-16] MEDS: Sodium Chloride 0.45% 1,000 ML IV SCH (10:58)
[2024-03-16] MEDS: Dexmedetomidine In 0.9 % NaCl 100 ML IVPB SCH (13:49)
[2024-03-16] MEDS: Vancomycin (BATCH) 1.5 GM in Premix 1 BAG IVPB SCH (14:16)
[2024-03-17 05:23] LABS: #Basophils Less than 0.03 10x3/uL (0.0-0.2); #Eosinphils Less than 0.03 10x3/uL (0.0-0.7); %Basophils 0.1 % (0.0-1.0); %Lymphocytes 9.4 % (21.0-51.0); %Monocytes 12.2 % (0.0-10.0); %Neutrophils 77.5 % (42.0-75.0); Hematocrit 38.9 % (42.0-52.0); Hemoglobin 13.7 g/dL (14.0-18.0); Mean Corpuscular HGB CONC 35.2 g/dL (32.0-36.0); Mean Corpuscular Hemoglobin 30.4 pg (27.0-31.0); Mean Corpuscular Volume 86.4 fL (78.0-98.0); Mean Platelet Volume 9.7 fL (7.4-10.4); Platelet Count 210 10x3/uL (130-400); RBC Distribution Width 14.8 % (11.5-14.5)
[2024-03-17 06:02] LABS: Anion Gap 13 mmol/L (10-20); BUN (Urea Nitrogen) 10 mg/dL (8.9-20.6); Calc. Creatinine Clearance 197 mL/min (70-130); Calcium 8.3 mg/dL (7.8-10.44); Carbon Dioxide 21 mmol/L (22-29); Chloride 111 mmol/L (98-107); Estimated GFR 118; Glucose 163 mg/dL (70-105); Potassium 3.2 mmol/L (3.5-5.1); Sodium 142 mmol/L (136-145)
[2024-03-17 06:06] LABS: Vancomycin, Random 18.2 ug/mL (See Comment)
[2024-03-17 07:12] LABS: Actual Bicarbonate (HCO3a) 21.5 mEq/L (22-28); Base Excess (BEa) -1.7 mEq/L (-2.0 to +3.0); CO2 Tension 32.5 mmHg (35.0-45.0); Calcium, Ionized (arterial) 1.15 mmol/L (1.12-1.30); Carboxyhemoglobin (COHb) 0.2 gm% (0.0-3.0); Hematocrit-ABG 43 % (42.0-52.0); Hemoglobin (Hb) 14.7 g/dL (14.0-18.0); O2 Tension (PaO2), arterial 95.2 mmHg (80.0-100.0); Potassium - ABG Lab 3.33 mmol/L (3.70-5.30); pH, Arterial 7.439 (7.35-7.45)
[2024-03-17 07:13] LABS: ALV-art Gradient 78.075 mmHg (0-20); Puncture Site RRA
[2024-03-17] MEDS: Pantoprazole 40 MG VIAL IVP SCH (08:45)
[2024-03-17] MEDS: levETIRAcetam 500 MG (5 mL) VIAL SLOW IVP SCH (08:45)
[2024-03-17] MEDS: Potassium Bicarbonate/Cit Ac 20 MEQ TAB PER TUBE SCH (08:46)
[2024-03-17] MEDS: Potassium Chloride 20 MEQ TAB PO SCH (09:21)
[2024-03-18 04:55] LABS: #Basophils Less than 0.03 10x3/uL (0.0-0.2); #Eosinphils Less than 0.03 10x3/uL (0.0-0.7); %Basophils 0.2 % (0.0-1.0); %Lymphocytes 12.5 % (21.0-51.0); %Monocytes 12.8 % (0.0-10.0); %Neutrophils 72.4 % (42.0-75.0); Hemoglobin 13.8 g/dL (14.0-18.0); Mean Corpuscular HGB CONC 35.4 g/dL (32.0-36.0); Mean Corpuscular Hemoglobin 30.7 pg (27.0-31.0); Mean Corpuscular Volume 86.7 fL (78.0-98.0); Mean Platelet Volume 9.5 fL (7.4-10.4); Platelet Count 217 10x3/uL (130-400); RBC Distribution Width 14.8 % (11.5-14.5)
[2024-03-18 05:11] LABS: Anion Gap 14 mmol/L (10-20); BUN (Urea Nitrogen) 17 mg/dL (8.9-20.6); Calc. Creatinine Clearance 200 mL/min (70-130); Calcium 8.5 mg/dL (7.8-10.44); Carbon Dioxide 24 mmol/L (22-29); Chloride 107 mmol/L (98-107); Estimated GFR 120; Glucose 149 mg/dL (70-105); Potassium 2.7 mmol/L (3.5-5.1); Sodium 142 mmol/L (136-145)
[2024-03-18] MEDS: Potassium Bicarbonate/Cit Ac 20 MEQ TAB PER TUBE SCH (05:33)
[2024-03-18] MEDS: 1/2 NS w/Potassium 20 mEq 1,000 ML IV SCH (11:17)
[2024-03-18 13:16] LABS: West Nile Virus IgG Ab - CSF Negative (Negative); West Nile Virus IgM Ab - CSF Negative (Negative)
[2024-03-18 14:15] LABS: Potassium 2.9 mmol/L (3.5-5.1)
[2024-03-18 16:16] LABS: QuantiFERON-TB Gold Plus Negative (Negative)
[2024-03-18 16:16] LABS: VDRL, CSF Non Reactive (Non Rea:<1:1)
[2024-03-18] MEDS: Dexmedetomidine In 0.9 % NaCl 100 ML IVPB SCH (17:38)
[2024-03-18] MEDS: Potassium Bicarbonate/Cit Ac 20 MEQ TAB PO SCH (21:05)
[2024-03-18] MEDS: methylPREDNISolone Sod Succ 40 MG VIAL IVP SCH (21:06)
[2024-03-18] MEDS: Sodium Chloride 0.9% 100 ML ONE (21:55)
[2024-03-19] MEDS: Acetaminophen 325 MG TAB PO PRN (01:10)
[2024-03-19 03:56] LABS: #Basophils Less than 0.03 10x3/uL (0.0-0.2); #Eosinphils Less than 0.03 10x3/uL (0.0-0.7); %Basophils 0.4 % (0.0-1.0); %Lymphocytes 18.3 % (21.0-51.0); %Monocytes 15.3 % (0.0-10.0); %Neutrophils 63.4 % (42.0-75.0); Hematocrit 38.9 % (42.0-52.0); Hemoglobin 13.6 g/dL (14.0-18.0); Mean Corpuscular Hemoglobin 30.5 pg (27.0-31.0); Mean Corpuscular Volume 87.2 fL (78.0-98.0); Mean Platelet Volume 9.1 fL (7.4-10.4); Platelet Count 184 10x3/uL (130-400); RBC Distribution Width 14.7 % (11.5-14.5); Red Blood Cell (RBC) Count 4.46 mill/uL (4.70-6.10)
[2024-03-19 04:20] LABS: ALT (SGPT) 29 U/L (8-55); AST (SGOT) 20 U/L (5-34); Albumin 2.5 g/dL (3.5-5.0); Alkaline Phosphatase 52 U/L (40-110); Anion Gap 12 mmol/L (10-20); BUN (Urea Nitrogen) 18 mg/dL (8.9-20.6); Bilirubin, Total 0.2 mg/dL (0.2-1.2); Calc. Creatinine Clearance 194 mL/min (70-130); Calcium 8.4 mg/dL (7.8-10.44); Carbon Dioxide 24 mmol/L (22-29); Chloride 103 mmol/L (98-107); Estimated GFR 119; Globulin 3.1 g/dL (2.4-3.5); Glucose 150 mg/dL (70-105); Potassium 3.5 mmol/L (3.5-5.1); Protein, Total 5.6 g/dL (6.0-8.3); Sodium 135 mmol/L (136-145)
[2024-03-19] MEDS: Dexmedetomidine 1,000 MCG in NS 250 mL IVPB SCH (06:32)
[2024-03-19] MEDS: Potassium Bicarbonate/Cit Ac 20 MEQ TAB PER TUBE SCH ×3 (08:26→21:30)
[2024-03-19 09:16] LABS: HSV 1 - DNA, CSF Negative (Negative); HSV 2 - DNA, CSF Negative (Negative)
[2024-03-19 12:48] LABS: Potassium 3.4 mmol/L (3.5-5.1)
[2024-03-19 21:00] LABS: Potassium 2.9 mmol/L (3.5-5.1)
[2024-03-19] MEDS: Melatonin 3 MG TAB PER TUBE PRN (21:30)
[2024-03-19] MEDS: Acetaminophen 325 MG TAB PER TUBE PRN (21:30)
[2024-03-20 04:35] LABS: #Basophils Less than 0.03 10x3/uL (0.0-0.2); #Eosinphils Less than 0.03 10x3/uL (0.0-0.7); %Basophils 0.4 % (0.0-1.0); %Eosinophils 0.4 % (0.0-10.0); %Lymphocytes 18.5 % (21.0-51.0); %Monocytes 13.1 % (0.0-10.0); %Neutrophils 64.6 % (42.0-75.0); Hematocrit 41.7 % (42.0-52.0); Hemoglobin 14.6 g/dL (14.0-18.0); Mean Corpuscular Hemoglobin 30.5 pg (27.0-31.0); Mean Corpuscular Volume 87.1 fL (78.0-98.0); Mean Platelet Volume 9.2 fL (7.4-10.4); Platelet Count 168 10x3/uL (130-400); RBC Distribution Width 14.6 % (11.5-14.5); Red Blood Cell (RBC) Count 4.79 mill/uL (4.70-6.10)
[2024-03-20 04:59] LABS: Anion Gap 12 mmol/L (10-20); BUN (Urea Nitrogen) 14 mg/dL (8.9-20.6); Calc. Creatinine Clearance 190 mL/min (70-130); Calcium 9.1 mg/dL (7.8-10.44); Carbon Dioxide 27 mmol/L (22-29); Chloride 103 mmol/L (98-107); Estimated GFR 119; Glucose 124 mg/dL (70-105); Potassium 3.5 mmol/L (3.5-5.1); Sodium 138 mmol/L (136-145)
[2024-03-20] MEDS: Potassium Bicarbonate/Cit Ac 20 MEQ TAB PER TUBE SCH ×3 (05:34→21:27)
[2024-03-20] MEDS: Amlodipine 5 MG TAB PER TUBE SCH (08:04)
[2024-03-20] MEDS: Folic Acid 1 MG TAB PER TUBE SCH (08:04)
[2024-03-20 10:17] LABS: Potassium 3.4 mmol/L (3.5-5.1)
[2024-03-20 14:51] LABS: Prothrombin Time 12.7 sec (12.0-14.7)
[2024-03-20 14:52] LABS: PTT 29.6 sec (22.9-36.1)
[2024-03-20 14:54] LABS: D-Dimer Test 0.3 mcg/mL (0.27-0.43)
[2024-03-20 18:56] LABS: Potassium 3.1 mmol/L (3.5-5.1)
[2024-03-20] MEDS: chlorproMAZINE HCl 50 MG/2 ML AMP IM PRN (19:02)
[2024-03-21 01:53] LABS: Potassium 3.7 mmol/L (3.5-5.1)
[2024-03-21 04:32] LABS: #Basophils Less than 0.03 10x3/uL (0.0-0.2); #Eosinphils Less than 0.03 10x3/uL (0.0-0.7); %Basophils 0.2 % (0.0-1.0); %Eosinophils 0.4 % (0.0-10.0); %Lymphocytes 15.5 % (21.0-51.0); %Neutrophils 72.1 % (42.0-75.0); Hemoglobin 13.4 g/dL (14.0-18.0); Mean Corpuscular HGB CONC 34.4 g/dL (32.0-36.0); Mean Corpuscular Hemoglobin 30.3 pg (27.0-31.0); Mean Corpuscular Volume 88.2 fL (78.0-98.0); Mean Platelet Volume 9.6 fL (7.4-10.4); Platelet Count 151 10x3/uL (130-400); RBC Distribution Width 14.7 % (11.5-14.5); Red Blood Cell (RBC) Count 4.42 mill/uL (4.70-6.10)
[2024-03-21 05:18] LABS: Anion Gap 10 mmol/L (10-20); BUN (Urea Nitrogen) 26 mg/dL (8.9-20.6); Calc. Creatinine Clearance 186 mL/min (70-130); Calcium 8.8 mg/dL (7.8-10.44); Carbon Dioxide 23 mmol/L (22-29); Chloride 102 mmol/L (98-107); Estimated GFR 119; Glucose 144 mg/dL (70-105); Potassium 3.6 mmol/L (3.5-5.1); Sodium 131 mmol/L (136-145)
[2024-03-21] MEDS: Acyclovir Sodium 800 MG in Sodium Chloride 0.9% 250 ML 250 ML IVPB SCH ×2 (11:53→18:12)
[2024-03-21] MEDS ORDERED: Acyclovir Sodium 800 MG in Sodium Chloride 0.9% 250 ML 250 ML IVPB SCH (14:00)
[2024-03-22 04:55] LABS: ALT (SGPT) 53 U/L (8-55); AST (SGOT) 40 U/L (5-34); Albumin 2.6 g/dL (3.5-5.0); Alkaline Phosphatase 42 U/L (40-110); Anion Gap 14 mmol/L (10-20); BUN (Urea Nitrogen) 41 mg/dL (8.9-20.6); Bilirubin, Total 0.3 mg/dL (0.2-1.2); Calc. Creatinine Clearance 87 mL/min (70-130); Calcium 8.6 mg/dL (7.8-10.44); Carbon Dioxide 22 mmol/L (22-29); Chloride 105 mmol/L (98-107); Estimated GFR 62; Globulin 2.8 g/dL (2.4-3.5); Glucose 104 mg/dL (70-105); Potassium 2.8 mmol/L (3.5-5.1); Protein, Total 5.4 g/dL (6.0-8.3); Sodium 138 mmol/L (136-145)
[2024-03-22 05:03] LABS: #Basophils Less than 0.03 10x3/uL (0.0-0.2); %Basophils 0.3 % (0.0-1.0); %Eosinophils 1.8 % (0.0-10.0); %Lymphocytes 15.6 % (21.0-51.0); %Monocytes 17.6 % (0.0-10.0); Hematocrit 36.7 % (42.0-52.0); Hemoglobin 12.7 g/dL (14.0-18.0); Mean Corpuscular HGB CONC 34.6 g/dL (32.0-36.0); Mean Corpuscular Hemoglobin 30.5 pg (27.0-31.0); Mean Corpuscular Volume 88.2 fL (78.0-98.0); Mean Platelet Volume 9.5 fL (7.4-10.4); Platelet Count 148 10x3/uL (130-400); RBC Distribution Width 14.6 % (11.5-14.5); Red Blood Cell (RBC) Count 4.16 mill/uL (4.70-6.10)
[2024-03-22] MEDS: Potassium Bicarbonate/Cit Ac 20 MEQ TAB PER TUBE SCH (05:33)
[2024-03-22 08:56] LABS: Magnesium 2.5 mg/dL (1.6-2.6)
[2024-03-22] MEDS: methylPREDNISolone Sod Succ 40 MG VIAL IVP SCH (09:11)
[2024-03-22] MEDS: Sodium Chloride 0.45% 1,000 ML IV SCH (09:14)
[2024-03-22] MEDS: Aspirin 325 MG TAB PER TUBE SCH (09:23)
[2024-03-22 13:19] LABS: ALT (SGPT) 72 U/L (8-55); AST (SGOT) 69 U/L (5-34); Albumin 2.8 g/dL (3.5-5.0); Alkaline Phosphatase 46 U/L (40-110); Anion Gap 12 mmol/L (10-20); BUN (Urea Nitrogen) 44 mg/dL (8.9-20.6); Bilirubin, Total 0.2 mg/dL (0.2-1.2); Calc. Creatinine Clearance 75 mL/min (70-130); Carbon Dioxide 22 mmol/L (22-29); Chloride 106 mmol/L (98-107); Estimated GFR 51; Globulin 3.8 g/dL (2.4-3.5); Glucose 150 mg/dL (70-105); Potassium 5.1 mmol/L (3.5-5.1); Protein, Total 6.6 g/dL (6.0-8.3); Sodium 135 mmol/L (136-145)
[2024-03-22] MEDS: WATER FS SCH (16:25)
[2024-03-22] MEDS: ADMIXTURE FEE FS SCH (16:25)
[2024-03-22] MEDS: DEXTROSE 5% FS SCH (16:25)
[2024-03-22] MEDS: AMBISOME IVPB SCH (16:26)
[2024-03-22] MEDS: STERILE WATER IVPB SCH (16:26)
[2024-03-22] MEDS: DEXTROSE IVPB SCH (16:26)
[2024-03-22] MEDS: WATER IVPB SCH (16:26)
[2024-03-23 04:16] LABS: Hemoglobin 13.6 g/dL (14.0-18.0); Mean Corpuscular HGB CONC 34.9 g/dL (32.0-36.0); Mean Corpuscular Hemoglobin 29.9 pg (27.0-31.0); Mean Corpuscular Volume 85.7 fL (78.0-98.0); Mean Platelet Volume 9.6 fL (7.4-10.4); Platelet Count 147 10x3/uL (130-400); RBC Distribution Width 14.8 % (11.5-14.5); Red Blood Cell (RBC) Count 4.55 mill/uL (4.70-6.10)
[2024-03-23 04:51] LABS: Anion Gap 13 mmol/L (10-20); BUN (Urea Nitrogen) 38 mg/dL (8.9-20.6); Calc. Creatinine Clearance 96 mL/min (70-130); Calcium 8.9 mg/dL (7.8-10.44); Carbon Dioxide 23 mmol/L (22-29); Chloride 108 mmol/L (98-107); Estimated GFR 69; Glucose 113 mg/dL (70-105); Potassium 3.2 mmol/L (3.5-5.1); Sodium 141 mmol/L (136-145)
[2024-03-23 04:55] LABS: Band 3 % (5-11); Lymphocytes 16 % (21-51); Monocytes 14 % (0-10); Neutrophil 66 % (42-75); Platelet Adequacy Comment Platelets Normal; RBC Morphology Within Normal Limits
[2024-03-23] MEDS: Potassium Bicarbonate/Cit Ac 20 MEQ TAB PER TUBE SCH (06:04)
[2024-03-23] MEDS ORDERED: Aspirin 325 MG TAB PER TUBE SCH (09:00)
[2024-03-23] MEDS ORDERED: Sodium Bicarbonate 2.5 MEQ/5 ML SDV ONE (10:08)
[2024-03-23] MEDS: Ondansetron PF 4 MG/2 ML Vial IVP PRN (10:45)
[2024-03-23 12:16] LABS: Cardiolipin IgA Ab 4.5 APL-U/mL (<14 Negative); Cardiolipin IgG Ab 0.9 GPL-U/mL (<10 Negative); Cardiolipin IgM Ab 1.3 MPL-U/mL (<10 Negative); EliA APS New Method **** NEW METHOD ****
[2024-03-23 12:34] LABS: CSF Source CSF; Clarity Clear (Clear); Tube # 4
[2024-03-23 12:55] LABS: CSF, Protein 102.4 mg/dL (15-40)
[2024-03-23 16:24] LABS: Reference Lab Name LABCORP
[2024-03-23 16:42] LABS: Ref Lab Test Ordered HISTOPLASMA AG CSF; Reference Lab Name LABCORP
[2024-03-24 03:57] LABS: #Basophils Less than 0.03 10x3/uL (0.0-0.2); %Basophils 0.3 % (0.0-1.0); %Lymphocytes 14.1 % (21.0-51.0); %Monocytes 16.7 % (0.0-10.0); Hematocrit 38.7 % (42.0-52.0); Hemoglobin 13.4 g/dL (14.0-18.0); Mean Corpuscular HGB CONC 34.6 g/dL (32.0-36.0); Mean Corpuscular Volume 86.8 fL (78.0-98.0); Mean Platelet Volume 9.6 fL (7.4-10.4); Platelet Count 152 10x3/uL (130-400); RBC Distribution Width 14.8 % (11.5-14.5); Red Blood Cell (RBC) Count 4.46 mill/uL (4.70-6.10)
[2024-03-24 04:04] LABS: ALT (SGPT) 88 U/L (8-55); AST (SGOT) 53 U/L (5-34); Alkaline Phosphatase 58 U/L (40-110); Anion Gap 13 mmol/L (10-20); BUN (Urea Nitrogen) 30 mg/dL (8.9-20.6); Bilirubin, Total 0.4 mg/dL (0.2-1.2); Calc. Creatinine Clearance 123 mL/min (70-130); Calcium 9.4 mg/dL (7.8-10.44); Carbon Dioxide 26 mmol/L (22-29); Chloride 107 mmol/L (98-107); Estimated GFR 90; Globulin 3.4 g/dL (2.4-3.5); Glucose 107 mg/dL (70-105); Potassium 3.2 mmol/L (3.5-5.1); Protein, Total 6.4 g/dL (6.0-8.3); Sodium 143 mmol/L (136-145)
[2024-03-24] MEDS: Potassium Bicarbonate/Cit Ac 20 MEQ TAB PER TUBE SCH (08:37)
[2024-03-24] MEDS: Potassium Chloride 20 MEQ in Lactated Ringer's 1,000 ML IV SCH (10:03)
[2024-03-24 13:49] LABS: Potassium 3.6 mmol/L (3.5-5.1)
[2024-03-24 15:29] LABS: Potassium, Urine 29.5 mmol/L
[2024-03-25] MEDS ORDERED: Potassium Chloride 20 MEQ in Lactated Ringer's 1,000 ML IV SCH (01:00)
[2024-03-25 04:09] LABS: #Basophils Less than 0.03 10x3/uL (0.0-0.2); %Basophils 0.2 % (0.0-1.0); %Eosinophils 1.5 % (0.0-10.0); %Lymphocytes 23.1 % (21.0-51.0); %Monocytes 18.9 % (0.0-10.0); %Neutrophils 55.5 % (42.0-75.0); Hematocrit 37.1 % (42.0-52.0); Hemoglobin 12.7 g/dL (14.0-18.0); Mean Corpuscular HGB CONC 34.2 g/dL (32.0-36.0); Mean Corpuscular Hemoglobin 30.4 pg (27.0-31.0); Mean Corpuscular Volume 88.8 fL (78.0-98.0); Mean Platelet Volume 9.5 fL (7.4-10.4); Platelet Count 166 10x3/uL (130-400); RBC Distribution Width 14.7 % (11.5-14.5); Red Blood Cell (RBC) Count 4.18 mill/uL (4.70-6.10)
[2024-03-25 04:30] LABS: ALT (SGPT) 86 U/L (8-55); AST (SGOT) 40 U/L (5-34); Albumin 2.8 g/dL (3.5-5.0); Alkaline Phosphatase 63 U/L (40-110); Anion Gap 12 mmol/L (10-20); BUN (Urea Nitrogen) 25 mg/dL (8.9-20.6); Bilirubin, Total 0.3 mg/dL (0.2-1.2); Calc. Creatinine Clearance 131 mL/min (70-130); Calcium 9.5 mg/dL (7.8-10.44); Carbon Dioxide 26 mmol/L (22-29); Chloride 109 mmol/L (98-107); Estimated GFR 99; Globulin 3.3 g/dL (2.4-3.5); Glucose 114 mg/dL (70-105); Potassium 3.3 mmol/L (3.5-5.1); Protein, Total 6.1 g/dL (6.0-8.3); Sodium 144 mmol/L (136-145)
[2024-03-25] MEDS: Potassium Bicarbonate/Cit Ac 20 MEQ TAB PER TUBE SCH (09:02)
[2024-03-25] MEDS: Desmopressin Acetate 4 mcg/ml AMPUL IVP SCH (10:09)
[2024-03-25] MEDS: Lansoprazole 30 MG/10 ML UDCUP PER TUBE SCH (10:46)
[2024-03-25 14:17] LABS: Fungitell Beta (1,3) D-Glucan Negative (.)
[2024-03-25 14:41] LABS: HEX PHOS LA Tube 1 41.6 SEC; HEX PHOS LA Tube 2 38.4 SEC; Hexagonal Phospholipid Neut 3.2 SEC (0-8.0)
[2024-03-25 15:02] LABS: Potassium 3.6 mmol/L (3.5-5.1)
[2024-03-26 08:53] LABS: #Basophils 0.03 10x3/uL (0.0-0.2); %Basophils 0.5 % (0.0-1.0); %Eosinophils 2.2 % (0.0-10.0); %Monocytes 15.7 % (0.0-10.0); %Neutrophils 61.5 % (42.0-75.0); Hematocrit 38.3 % (42.0-52.0); Hemoglobin 12.8 g/dL (14.0-18.0); Mean Corpuscular HGB CONC 33.4 g/dL (32.0-36.0); Mean Corpuscular Volume 89.7 fL (78.0-98.0); Mean Platelet Volume 9.2 fL (7.4-10.4); Platelet Count 208 10x3/uL (130-400); Red Blood Cell (RBC) Count 4.27 mill/uL (4.70-6.10)
[2024-03-26 09:12] LABS: ALT (SGPT) 82 U/L (8-55); AST (SGOT) 32 U/L (5-34); Albumin 2.8 g/dL (3.5-5.0); Alkaline Phosphatase 63 U/L (40-110); Anion Gap 10 mmol/L (10-20); BUN (Urea Nitrogen) 20 mg/dL (8.9-20.6); Bilirubin, Total 0.3 mg/dL (0.2-1.2); Calc. Creatinine Clearance 158 mL/min (70-130); Calcium 9.3 mg/dL (7.8-10.44); Carbon Dioxide 26 mmol/L (22-29); Chloride 109 mmol/L (98-107); Estimated GFR 113; Globulin 3.3 g/dL (2.4-3.5); Glucose 139 mg/dL (70-105); Potassium 3.1 mmol/L (3.5-5.1); Protein, Total 6.1 g/dL (6.0-8.3); Sodium 142 mmol/L (136-145)
[2024-03-26] MEDS: Potassium Bicarbonate/Cit Ac 20 MEQ TAB PER TUBE SCH ×2 (09:56→13:42)
[2024-03-26 16:14] LABS: Potassium 3.7 mmol/L (3.5-5.1)
[2024-03-26 16:20] LABS: Magnesium 1.6 mg/dL (1.6-2.6)
[2024-03-26] MEDS: Magnesium 2 GM/50 ML(in water) 2 GM in Premix 1 BAG IVPB SCH (18:46)
[2024-03-26] MEDS: Atorvastatin Calcium 40 MG TAB PO SCH (20:53)
[2024-03-27 04:19] LABS: #Basophils 0.03 10x3/uL (0.0-0.2); %Basophils 0.5 % (0.0-1.0); %Eosinophils 2.3 % (0.0-10.0); %Lymphocytes 22.8 % (21.0-51.0); %Monocytes 16.5 % (0.0-10.0); %Neutrophils 56.4 % (42.0-75.0); Hematocrit 37.2 % (42.0-52.0); Hemoglobin 12.7 g/dL (14.0-18.0); Mean Corpuscular HGB CONC 34.1 g/dL (32.0-36.0); Mean Corpuscular Hemoglobin 30.1 pg (27.0-31.0); Mean Corpuscular Volume 88.2 fL (78.0-98.0); Mean Platelet Volume 9.5 fL (7.4-10.4); Platelet Count 219 10x3/uL (130-400); RBC Distribution Width 14.9 % (11.5-14.5); Red Blood Cell (RBC) Count 4.22 mill/uL (4.70-6.10)
[2024-03-27 04:51] LABS: Anion Gap 10 mmol/L (10-20); BUN (Urea Nitrogen) 18 mg/dL (8.9-20.6); Calc. Creatinine Clearance 185 mL/min (70-130); Calcium 9.1 mg/dL (7.8-10.44); Carbon Dioxide 26 mmol/L (22-29); Chloride 106 mmol/L (98-107); Estimated GFR 118; Glucose 144 mg/dL (70-105); Magnesium 1.9 mg/dL (1.6-2.6); Potassium 3.5 mmol/L (3.5-5.1); Sodium 138 mmol/L (136-145)
[2024-03-27] MEDS: Magnesium 2 GM/50 ML(in water) 2 GM in Premix 1 BAG IVPB SCH (08:14)
[2024-03-27] MEDS: Potassium Bicarbonate/Cit Ac 20 MEQ TAB PER TUBE SCH (08:15)
[2024-03-27] MEDS: methylPREDNISolone Sod Succ 40 MG VIAL IVP SCH (08:16)
[2024-03-27] MEDS ORDERED: methylPREDNISolone Sod Succ 40 MG VIAL IVP SCH (09:00)
[2024-03-27 12:28] LABS: Potassium 3.8 mmol/L (3.5-5.1)
[2024-03-28 03:56] LABS: #Basophils Less than 0.03 10x3/uL (0.0-0.2); %Basophils 0.3 % (0.0-1.0); %Eosinophils 3.3 % (0.0-10.0); %Lymphocytes 22.6 % (21.0-51.0); %Monocytes 15.1 % (0.0-10.0); %Neutrophils 56.7 % (42.0-75.0); Hematocrit 35.4 % (42.0-52.0); Hemoglobin 12.2 g/dL (14.0-18.0); Mean Corpuscular HGB CONC 34.5 g/dL (32.0-36.0); Mean Corpuscular Volume 87.2 fL (78.0-98.0); Mean Platelet Volume 9.1 fL (7.4-10.4); Platelet Count 220 10x3/uL (130-400); RBC Distribution Width 14.8 % (11.5-14.5); Red Blood Cell (RBC) Count 4.06 mill/uL (4.70-6.10)
[2024-03-28 04:20] LABS: Anion Gap 9 mmol/L (10-20); BUN (Urea Nitrogen) 14 mg/dL (8.9-20.6); Calc. Creatinine Clearance 94 mL/min (70-130); Calcium 8.7 mg/dL (7.8-10.44); Carbon Dioxide 25 mmol/L (22-29); Chloride 105 mmol/L (98-107); Estimated GFR 121; Glucose 126 mg/dL (70-105); Magnesium 1.7 mg/dL (1.6-2.6); Potassium 3.5 mmol/L (3.5-5.1); Sodium 135 mmol/L (136-145)
[2024-03-28] MEDS: Potassium Bicarbonate/Cit Ac 20 MEQ TAB PER TUBE SCH (08:01)
[2024-03-28] MEDS: Magnesium 2 GM/50 ML(in water) 2 GM in Premix 1 BAG IVPB SCH (08:02)
[2024-03-28] MEDS: Acetaminophen/Codeine 30-300mg Tablet PO PRN (13:28)
[2024-03-28 13:50] LABS: Potassium 3.9 mmol/L (3.5-5.1)
[2024-03-28] MEDS: tiZANidine HCl 4 MG TAB PER TUBE SCH (13:57)
[2024-03-29 00:09] LABS: Potassium 3.8 mmol/L (3.5-5.1)
[2024-03-29 05:14] LABS: #Basophils 0.05 10x3/uL (0.0-0.2); %Basophils 0.6 % (0.0-1.0); %Eosinophils 2.6 % (0.0-10.0); %Lymphocytes 15.2 % (21.0-51.0); %Monocytes 14.5 % (0.0-10.0); %Neutrophils 65.2 % (42.0-75.0); Hematocrit 39.3 % (42.0-52.0); Hemoglobin 13.4 g/dL (14.0-18.0); Mean Corpuscular HGB CONC 34.1 g/dL (32.0-36.0); Mean Corpuscular Hemoglobin 29.8 pg (27.0-31.0); Mean Corpuscular Volume 87.5 fL (78.0-98.0); Platelet Count 244 10x3/uL (130-400); RBC Distribution Width 14.7 % (11.5-14.5); Red Blood Cell (RBC) Count 4.49 mill/uL (4.70-6.10)
[2024-03-29 05:34] LABS: Anion Gap 12 mmol/L (10-20); BUN (Urea Nitrogen) 13 mg/dL (8.9-20.6); Calc. Creatinine Clearance 90 mL/min (70-130); Carbon Dioxide 24 mmol/L (22-29); Chloride 106 mmol/L (98-107); Estimated GFR 119; Glucose 121 mg/dL (70-105); Magnesium 1.7 mg/dL (1.6-2.6); Potassium 3.8 mmol/L (3.5-5.1); Sodium 138 mmol/L (136-145)
[2024-03-29] MEDS: Lactated Ringer's 500 ML IV SCH (08:46)
[2024-03-29] MEDS: Magnesium 2 GM/50 ML(in water) 2 GM in Premix 1 BAG IVPB SCH (09:14)
[2024-03-29] MEDS: Enoxaparin 40 MG (0.4 mL) SYRINGE SC SCH (09:16)
[2024-03-29] MEDS: Desmopressin Acetate 4 mcg/ml AMPUL IVP SCH (09:18)
[2024-03-29] MEDS: methylPREDNISolone Sod Succ 40 MG VIAL IVP SCH (09:22)
[2024-03-29] MEDS: tiZANidine HCl 4 MG TAB PER TUBE SCH (20:38)
[2024-03-30 04:15] LABS: #Basophils Less than 0.03 10x3/uL (0.0-0.2); %Basophils 0.2 % (0.0-1.0); %Monocytes 14.9 % (0.0-10.0); %Neutrophils 73.5 % (42.0-75.0); Hematocrit 36.2 % (42.0-52.0); Hemoglobin 12.5 g/dL (14.0-18.0); Mean Corpuscular HGB CONC 34.5 g/dL (32.0-36.0); Mean Corpuscular Hemoglobin 30.9 pg (27.0-31.0); Mean Corpuscular Volume 89.6 fL (78.0-98.0); Mean Platelet Volume 8.9 fL (7.4-10.4); Platelet Count 216 10x3/uL (130-400); RBC Distribution Width 15.3 % (11.5-14.5); Red Blood Cell (RBC) Count 4.04 mill/uL (4.70-6.10)
[2024-03-30 04:38] LABS: Anion Gap 9 mmol/L (10-20); BUN (Urea Nitrogen) 25 mg/dL (8.9-20.6); Calc. Creatinine Clearance 98 mL/min (70-130); Calcium 8.7 mg/dL (7.8-10.44); Carbon Dioxide 25 mmol/L (22-29); Chloride 108 mmol/L (98-107); Estimated GFR 70; Glucose 153 mg/dL (70-105); Magnesium 2.2 mg/dL (1.6-2.6); Potassium 4.2 mmol/L (3.5-5.1); Sodium 138 mmol/L (136-145)
[2024-03-30 08:04] LABS: M tuberculosis PCR Result Negative (NotDetected)
[2024-03-30] MEDS: Aspirin Chewable 81 MG TAB PER TUBE SCH (10:34)
[2024-03-31 06:44] LABS: #Basophils Less than 0.03 10x3/uL (0.0-0.2); %Basophils 0.1 % (0.0-1.0); %Lymphocytes 11.4 % (21.0-51.0); %Monocytes 12.7 % (0.0-10.0); %Neutrophils 73.8 % (42.0-75.0); Hematocrit 36.2 % (42.0-52.0); Hemoglobin 12.4 g/dL (14.0-18.0); Mean Corpuscular HGB CONC 34.3 g/dL (32.0-36.0); Mean Corpuscular Hemoglobin 30.9 pg (27.0-31.0); Mean Corpuscular Volume 90.3 fL (78.0-98.0); Mean Platelet Volume 8.9 fL (7.4-10.4); Platelet Count 208 10x3/uL (130-400); RBC Distribution Width 15.6 % (11.5-14.5); Red Blood Cell (RBC) Count 4.01 mill/uL (4.70-6.10)
[2024-03-31 07:02] LABS: Anion Gap 12 mmol/L (10-20); BUN (Urea Nitrogen) 23 mg/dL (8.9-20.6); Calc. Creatinine Clearance 146 mL/min (70-130); Calcium 9.1 mg/dL (7.8-10.44); Carbon Dioxide 26 mmol/L (22-29); Chloride 107 mmol/L (98-107); Estimated GFR 109; Glucose 115 mg/dL (70-105); Potassium 3.8 mmol/L (3.5-5.1); Sodium 141 mmol/L (136-145)
[2024-03-31] MEDS: Potassium Chloride 20 MEQ in Lactated Ringer's 1,000 ML IV SCH (10:49)
[2024-03-31] MEDS ORDERED: PROPOFOL 40 ML ONE ×2 (11:44→12:49)
[2024-03-31] MEDS ORDERED: fentaNYL PF 100 MCG/2 ML SYRINGE ONE (13:10)
[2024-03-31] MEDS ORDERED: CEFAZOLIN 1 GM VIAL ONE (13:11)
[2024-03-31] MEDS ORDERED: Lidocaine 1% PF 5 ML VIAL ONE (13:21)
[2024-03-31 19:10] LABS: Aspergillus AB-CSF <1:1 (.); Blastomyces AB-CSF <1:1 (.); Histoplasma Mycelial AB-CSF <1:1 (.); Histoplasma Yeast AB-CSF <1:1 (.)
[2024-03-31] MEDS: tiZANidine HCl 4 MG TAB PER TUBE SCH (19:59)
[2024-04-01 04:25] LABS: #Basophils Less than 0.03 10x3/uL (0.0-0.2); #Eosinphils Less than 0.03 10x3/uL (0.0-0.7); %Basophils 0.1 % (0.0-1.0); %Eosinophils 0.3 % (0.0-10.0); %Lymphocytes 16.3 % (21.0-51.0); %Monocytes 13.4 % (0.0-10.0); Hematocrit 37.9 % (42.0-52.0); Hemoglobin 13.1 g/dL (14.0-18.0); Mean Corpuscular HGB CONC 34.6 g/dL (32.0-36.0); Mean Corpuscular Hemoglobin 30.8 pg (27.0-31.0); Mean Corpuscular Volume 89.2 fL (78.0-98.0); Mean Platelet Volume 8.8 fL (7.4-10.4); Platelet Count 228 10x3/uL (130-400); RBC Distribution Width 15.3 % (11.5-14.5); Red Blood Cell (RBC) Count 4.25 mill/uL (4.70-6.10)
[2024-04-01 04:44] LABS: Anion Gap 12 mmol/L (10-20); BUN (Urea Nitrogen) 22 mg/dL (8.9-20.6); Calc. Creatinine Clearance 172 mL/min (70-130); Calcium 9.5 mg/dL (7.8-10.44); Carbon Dioxide 26 mmol/L (22-29); Chloride 105 mmol/L (98-107); Estimated GFR 115; Glucose 95 mg/dL (70-105); Potassium 3.8 mmol/L (3.5-5.1); Sodium 139 mmol/L (136-145)
[2024-04-01] MEDS: Enoxaparin 40 MG (0.4 mL) SYRINGE SC SCH (07:40)
[2024-04-01] MEDS ORDERED: Bupivacaine 0.25% HCL 30 ML VIAL ONE (10:21)
[2024-04-01] MEDS ORDERED: EPINEPHrine 1 MG/ML VIAL ONE (10:21)
[2024-04-01] MEDS ORDERED: PROPOFOL 20 ML ONE (10:22)
[2024-04-01] MEDS ORDERED: Rocuronium Bromide 10 MG/ML (10ML VIAL) ONE (10:22)
[2024-04-01] MEDS ORDERED: fentaNYL PF 100 MCG/2 ML SYRINGE ONE (10:22)
[2024-04-01] MEDS ORDERED: PHENYLEPHRINE-NS 100 MCG/ML 10 ML SYRINGE ONE (10:22)
[2024-04-01] MEDS ORDERED: ePHEDrine Sulfate 50 MG/10 ML VIAL ONE (10:22)
[2024-04-01] MEDS ORDERED: SUCCINYLCHOLINE/SOD CL,ISO/PF 200 MG/10 ML SYRINGE FS ONE (10:55)
[2024-04-01] MEDS ORDERED: SUGAMMADEX SODIUM 200 MG/2 ML VIAL ONE (11:09)
[2024-04-01] MEDS ORDERED: Ondansetron PF 4 MG/2 ML Vial ONE (11:22)
[2024-04-01 15:58] VITALS: BMI 29.5
[2024-04-02 04:02] LABS: #Basophils Less than 0.03 10x3/uL (0.0-0.2); %Basophils 0.1 % (0.0-1.0); %Eosinophils 0.9 % (0.0-10.0); %Lymphocytes 15.2 % (21.0-51.0); %Monocytes 12.2 % (0.0-10.0); %Neutrophils 70.9 % (42.0-75.0); Hematocrit 38.3 % (42.0-52.0); Hemoglobin 13.1 g/dL (14.0-18.0); Mean Corpuscular HGB CONC 34.2 g/dL (32.0-36.0); Mean Corpuscular Hemoglobin 30.6 pg (27.0-31.0); Mean Corpuscular Volume 89.5 fL (78.0-98.0); Mean Platelet Volume 9.1 fL (7.4-10.4); Platelet Count 262 10x3/uL (130-400); RBC Distribution Width 15.3 % (11.5-14.5); Red Blood Cell (RBC) Count 4.28 mill/uL (4.70-6.10)
[2024-04-02 04:38] LABS: Anion Gap 13 mmol/L (10-20); BUN (Urea Nitrogen) 17 mg/dL (8.9-20.6); Calc. Creatinine Clearance 177 mL/min (70-130); Calcium 9.2 mg/dL (7.8-10.44); Carbon Dioxide 25 mmol/L (22-29); Chloride 103 mmol/L (98-107); Estimated GFR 117; Glucose 90 mg/dL (70-105); Potassium 3.6 mmol/L (3.5-5.1); Sodium 137 mmol/L (136-145)
[2024-04-02] MEDS: Labetalol HCl 100 MG TAB PO SCH (10:07)
[2024-04-02 20:12] LABS: Histo Mycelial AB-CSF (CF) <1:2 (<1:8); Histo Yeast AB-CSF (CF) <1:2 (<1:8)
[2024-04-03 03:35] LABS: #Basophils Less than 0.03 10x3/uL (0.0-0.2); %Basophils 0.2 % (0.0-1.0); %Eosinophils 0.8 % (0.0-10.0); %Lymphocytes 15.8 % (21.0-51.0); %Monocytes 15.1 % (0.0-10.0); %Neutrophils 67.2 % (42.0-75.0); Hematocrit 33.6 % (42.0-52.0); Hemoglobin 11.8 g/dL (14.0-18.0); Mean Corpuscular HGB CONC 35.1 g/dL (32.0-36.0); Mean Corpuscular Hemoglobin 31.4 pg (27.0-31.0); Mean Corpuscular Volume 89.4 fL (78.0-98.0); Mean Platelet Volume 9.3 fL (7.4-10.4); Platelet Count 228 10x3/uL (130-400); RBC Distribution Width 15.3 % (11.5-14.5); Red Blood Cell (RBC) Count 3.76 mill/uL (4.70-6.10)
[2024-04-03 04:04] LABS: Anion Gap 12 mmol/L (10-20); BUN (Urea Nitrogen) 28 mg/dL (8.9-20.6); Calc. Creatinine Clearance 143 mL/min (70-130); Calcium 8.6 mg/dL (7.8-10.44); Carbon Dioxide 23 mmol/L (22-29); Chloride 103 mmol/L (98-107); Estimated GFR 110; Glucose 158 mg/dL (70-105); Potassium 3.1 mmol/L (3.5-5.1); Sodium 135 mmol/L (136-145)
[2024-04-03] MEDS: Potassium Bicarbonate/Cit Ac 20 MEQ TAB PER TUBE SCH (09:21)
[2024-04-03] MEDS: valACYclovir 500 MG TAB PER TUBE SCH (18:23)
[2024-04-03] MEDS: levETIRAcetam 500 MG TAB PER TUBE SCH (21:59)
[2024-04-04 05:14] LABS: #Basophils Less than 0.03 10x3/uL (0.0-0.2); %Basophils 0.2 % (0.0-1.0); %Eosinophils 0.4 % (0.0-10.0); %Lymphocytes 12.9 % (21.0-51.0); %Monocytes 10.1 % (0.0-10.0); %Neutrophils 75.9 % (42.0-75.0); Hematocrit 36.8 % (42.0-52.0); Hemoglobin 12.5 g/dL (14.0-18.0); Mean Corpuscular Hemoglobin 30.6 pg (27.0-31.0); Mean Corpuscular Volume 90.2 fL (78.0-98.0); Mean Platelet Volume 9.1 fL (7.4-10.4); Platelet Count 231 10x3/uL (130-400); RBC Distribution Width 15.7 % (11.5-14.5); Red Blood Cell (RBC) Count 4.08 mill/uL (4.70-6.10)
[2024-04-04 05:33] LABS: Anion Gap 13 mmol/L (10-20); BUN (Urea Nitrogen) 19 mg/dL (8.9-20.6); Calc. Creatinine Clearance 179 mL/min (70-130); Calcium 8.8 mg/dL (7.8-10.44); Carbon Dioxide 22 mmol/L (22-29); Chloride 109 mmol/L (98-107); Estimated GFR 117; Glucose 123 mg/dL (70-105); Potassium 3.4 mmol/L (3.5-5.1); Sodium 141 mmol/L (136-145)
[2024-04-04] MEDS: valACYclovir 500 MG TAB PER TUBE SCH (08:24)
[2024-04-04] MEDS: predniSONE 20 MG TAB PER TUBE SCH (08:24)
[2024-04-04] MEDS: Potassium Bicarbonate/Cit Ac 20 MEQ TAB PER TUBE SCH (13:35)
[2024-04-04 14:08] VITALS: BP 117/72
[2024-04-04 15:08] VITALS: TEMP 98.7
== END 2024-04-04 15:09 | DRG 208 ==
LOC: ERS 15:25 → 2SE 18:47 → OBSVTOIN 03-14 09:24 → IMCU/EMU 03-15 10:54 → CCU 03-15 12:57
PROVIDERS: ADMIT Student in an Organized Health Care Education/Training Program; ATTEND Internal Medicine
PROC: 4A00X4Z Measurement of Central Nervous Electrical Activity, External Approach (ICD-10-PCS; principal; 2024-03-14)
PROC: 009U3ZX Drainage of Spinal Canal, Percutaneous Approach, Diagnostic (ICD-10-PCS; 2024-03-15)
PROC: B01B1ZZ Fluoroscopy of Spinal Cord using Low Osmolar Contrast (ICD-10-PCS; 2024-03-15)
PROC: 0BH17EZ Insertion of Endotracheal Airway into Trachea, Via Natural or Artificial Opening (ICD-10-PCS; 2024-03-15)
PROC: 5A1945Z Respiratory Ventilation, 24-96 Consecutive Hours (ICD-10-PCS; 2024-03-15)
PROC: 4A133R1 Monitoring of Arterial Saturation, Peripheral, Percutaneous Approach (ICD-10-PCS; 2024-03-15)
PROC: 4A00X4Z Measurement of Central Nervous Electrical Activity, External Approach (ICD-10-PCS; 2024-03-17)
PROC: 009U3ZX Drainage of Spinal Canal, Percutaneous Approach, Diagnostic (ICD-10-PCS; 2024-03-23)
PROC: B01B1ZZ Fluoroscopy of Spinal Cord using Low Osmolar Contrast (ICD-10-PCS; 2024-03-23)
PROC: 0DJ08ZZ Inspection of Upper Intestinal Tract, Via Natural or Artificial Opening Endoscopic (ICD-10-PCS; 2024-03-31)
PROC: 0DH63UZ Insertion of Feeding Device into Stomach, Percutaneous Approach (ICD-10-PCS; 2024-04-01)
PROC: 3E053XZ Introduction of Vasopressor into Peripheral Artery, Percutaneous Approach (ICD-10-PCS; 2024-04-01)
DX: D86.89 Sarcoidosis of other sites (principal); B02.1 Zoster meningitis; G93.41 Metabolic encephalopathy; I63.89 Other cerebral infarction; J96.00 Acute respiratory failure, unspecified whether with hypoxia or hypercapnia; E23.2 Diabetes insipidus; N39.0 Urinary tract infection, site not specified; D84.9 Immunodeficiency, unspecified; N17.9 Acute kidney failure, unspecified; B02.0 Zoster encephalitis; I10 Essential (primary) hypertension; G40.909 Epilepsy, unspecified, not intractable, without status epilepticus; Z79.899 Other long term (current) drug therapy; Z79.82 Long term (current) use of aspirin
CPT/HCPCS: 36415; 36600; 62270; 70496; 70498; 70553; 71045; 76377; 80048; 80053; 80202; 81001; 82436; 82550; 82805; 82945; 83036; 83090; 83735; 83935; 84133; 84157; 84300; 84484; 85025; 85060; 85300; 85303; 85305; 85307; 85598; 85610; 85730; 86147; 86480; 86592; 86612; 86635; 86698; 86788; 86789; 87070; 87116; 87205; 87206; 87385; 87389; 87449; 87529; 87556; 87899; 89051; 93005; 93010; 93306; 94002; 94003; 95700; 95711; 95816; 95819; 96374; 96375; A9579; C9113; G0378; J0133; J0171; J0289; J0290; J0360; J0665; J0690; J0696; J1650; J1953; J2060; J2405; J2597; J2704; J2919; J2920; J3230; J3370; J3475; J3480; J3490; J7050; J7070; J7120; J7512; Q9967

== ENCOUNTER 2024-04-15 18:43 | Inpatient (IN) | payer BC ==
[~2024-04-15 18:43] MED LIST: Iopamidol-370 76% 500 ML MDV (1 ML CHARGE) ONE
[2024-04-15 19:43] LABS: #Basophils Less than 0.03 10x3/uL (0.0-0.2); %Basophils 0.1 % (0.0-1.0); %Eosinophils 0.9 % (0.0-10.0); %Monocytes 8.3 % (0.0-10.0); %Neutrophils 78.7 % (42.0-75.0); Hematocrit 34.2 % (42.0-52.0); Hemoglobin 11.7 g/dL (14.0-18.0); Mean Corpuscular HGB CONC 34.2 g/dL (32.0-36.0); Mean Corpuscular Hemoglobin 31.9 pg (27.0-31.0); Mean Corpuscular Volume 93.2 fL (78.0-98.0); Mean Platelet Volume 9.7 fL (7.4-10.4); Platelet Count 252 10x3/uL (130-400); Red Blood Cell (RBC) Count 3.67 mill/uL (4.70-6.10)
[2024-04-15 20:03] LABS: ALT (SGPT) 32 U/L (8-55); AST (SGOT) 19 U/L (5-34); Albumin 2.7 g/dL (3.5-5.0); Alkaline Phosphatase 68 U/L (40-110); Anion Gap 11 mmol/L (10-20); BUN (Urea Nitrogen) 27 mg/dL (8.9-20.6); Bilirubin, Total 0.4 mg/dL (0.2-1.2); Calc. Creatinine Clearance 0 mL/min (70-130); Calcium 9.1 mg/dL (7.8-10.44); Carbon Dioxide 24 mmol/L (22-29); Chloride 105 mmol/L (98-107); Estimated GFR 119; Globulin 3.8 g/dL (2.4-3.5); Glucose 248 mg/dL (70-105); Potassium 3.8 mmol/L (3.5-5.1); Protein, Total 6.5 g/dL (6.0-8.3); Sodium 136 mmol/L (136-145)
[2024-04-15 20:07] LABS: Troponin I Less than 0.010 ng/mL (< 0.028)
[2024-04-15 20:17] LABS: Bilirubin Negative (Negative); Blood, Urine Negative (Negative); Clarity Clear (Clear); Glucose, Urine (Dipstick) 500 mg/dL (Negative); Ketone, Urine Negative (Negative); Leukocyte Negative Leu/uL (Negative); Nitrite Negative (Negative); Protein, Urine (Dipstick) Negative (Neg-Trace); Specific Gravity, Urine 1.023 (1.002-1.036); Urobilinogen 3 mg/dL (Less than 2); pH, Urine 7.5 (5.0-9.0)
[2024-04-15 20:29] LABS: Bacteria/HPF None Seen HPF (None Seen); CAUTI Indications for Culture Dysuria,urgency,freq; RBC/HPF None Seen HPF (0-3); Squamous Epithelial 0-3 HPF (0-3); WBC/HPF 0-3 HPF (0-3)
[2024-04-15 20:30] LABS: Urine Culture Reflex No No
[2024-04-15 20:56] LABS: Influenza A by NAA Not Detected (NotDetected); Influenza B by NAA Not Detected (NotDetected); SARS-CoV-2 NAA Rapid Test Not Detected (NotDetected)
[2024-04-15] MEDS ORDERED: Sodium Chloride 0.9% 100 ML ONE (21:21)
[2024-04-15] MEDS ORDERED: LevoFLOXacin 750 mg/D5W 150 ml Premix Bag ONE (21:21)
[2024-04-15] MEDS ORDERED: Cefepime 2 GM VIAL ONE (21:21)
[2024-04-15] MEDS ORDERED: Ondansetron ODT 4 MG TAB PO PRN (22:43)
[2024-04-15] MEDS ORDERED: Ondansetron PF 4 MG/2 ML Vial IVP PRN (22:43)
[2024-04-15] MEDS ORDERED: Acetaminophen 650 MG Suppository PR PRN (22:43)
[2024-04-15] MEDS ORDERED: Glucagon 1 MG/ML KIT IM PRN (22:49)
[2024-04-15] MEDS ORDERED: Dextrose 5% in Water 1,000 ML IV PRN (22:49)
[2024-04-15] MEDS ORDERED: Dextrose 50% Abboject 50 ML SYRINGE SLOW IVP PRN (22:49)
[2024-04-15] MEDS ORDERED: Insulin Lispro 100 UNIT/ML 10 ML VIAL SC PRN (22:49)
[2024-04-16] MEDS: Vancomycin (BATCH) 1.75 GM in Premix 1 BAG IVPB SCH (00:11)
[2024-04-16 01:03] VITALS: BMI 31.7
[2024-04-16 01:11] LABS: Troponin I 0.011 ng/mL (< 0.028)
[2024-04-16] MEDS ORDERED: Ipratropium/Albuterol 3 ML NEB NEB PRN ×2 (01:46→18:44)
[2024-04-16] MEDS: Ipratropium/Albuterol 3 ML NEB NEB SCH (02:55)
[2024-04-16] MEDS ORDERED: Albuterol 2.5 MG (3 mL) NEB NEB PRN (03:38)
[2024-04-16 06:08] LABS: #Basophils Less than 0.03 10x3/uL (0.0-0.2); %Basophils 0.3 % (0.0-1.0); %Eosinophils 2.4 % (0.0-10.0); %Lymphocytes 10.8 % (21.0-51.0); %Neutrophils 75.1 % (42.0-75.0); Hematocrit 34.3 % (42.0-52.0); Hemoglobin 11.7 g/dL (14.0-18.0); Mean Corpuscular HGB CONC 34.1 g/dL (32.0-36.0); Mean Corpuscular Hemoglobin 31.5 pg (27.0-31.0); Mean Corpuscular Volume 92.5 fL (78.0-98.0); Mean Platelet Volume 9.3 fL (7.4-10.4); Platelet Count 232 10x3/uL (130-400); RBC Distribution Width 16.2 % (11.5-14.5); Red Blood Cell (RBC) Count 3.71 mill/uL (4.70-6.10)
[2024-04-16 06:23] LABS: Anion Gap 13 mmol/L (10-20); BUN (Urea Nitrogen) 19 mg/dL (8.9-20.6); Calc. Creatinine Clearance 210 mL/min (70-130); Calcium 8.9 mg/dL (7.8-10.44); Carbon Dioxide 22 mmol/L (22-29); Chloride 106 mmol/L (98-107); Estimated GFR 123; Glucose 123 mg/dL (70-105); Potassium 3.7 mmol/L (3.5-5.1); Sodium 137 mmol/L (136-145)
[2024-04-16 06:29] LABS: Troponin I 0.011 ng/mL (< 0.028)
[2024-04-16] MEDS: Cefepime 2 GM in Sodium Chloride 0.9% 100 ML IVPB SCH (08:31)
[2024-04-16] MEDS: Pantoprazole 40 MG VIAL IVP SCH (08:31)
[2024-04-16] MEDS: Enoxaparin 40 MG (0.4 mL) SYRINGE SC SCH (08:31)
[2024-04-16] MEDS: Doxycycline 100 MG in Sodium Chloride 0.9% 100 ML IVPB SCH (09:19)
[2024-04-16] MEDS ORDERED: Sodium Chloride 0.65% Nasal 44 ML BOT EA NARE PRN (15:07)
[2024-04-16] MEDS: Vancomycin (BATCH) 2.5 GM in Premix 1 BAG IVPB SCH (20:26)
[2024-04-16] MEDS: Labetalol HCl 100 MG TAB PER TUBE SCH (20:27)
[2024-04-16] MEDS: Atorvastatin Calcium 40 MG TAB PER TUBE SCH (20:27)
[2024-04-16] MEDS: tiZANidine HCl 4 MG TAB PER TUBE SCH (20:27)
[2024-04-16] MEDS: levETIRAcetam 500 mg/5 ml Oral Solution PER TUBE SCH (20:28)
[2024-04-16] MEDS: Famotidine/PF 20 mg/2ml Vial SLOW IVP SCH (20:28)
[2024-04-16] MEDS ORDERED: Vancomycin 1 GM in Premix 1 BAG IVPB SCH (21:00)
[2024-04-17 03:38] LABS: #Basophils Less than 0.03 10x3/uL (0.0-0.2); %Basophils 0.2 % (0.0-1.0); %Eosinophils 3.2 % (0.0-10.0); %Lymphocytes 18.2 % (21.0-51.0); %Monocytes 12.1 % (0.0-10.0); %Neutrophils 63.6 % (42.0-75.0); Hematocrit 31.6 % (42.0-52.0); Hemoglobin 10.8 g/dL (14.0-18.0); Mean Corpuscular HGB CONC 34.2 g/dL (32.0-36.0); Mean Corpuscular Hemoglobin 31.5 pg (27.0-31.0); Mean Corpuscular Volume 92.1 fL (78.0-98.0); Mean Platelet Volume 9.3 fL (7.4-10.4); Platelet Count 219 10x3/uL (130-400); RBC Distribution Width 15.7 % (11.5-14.5); Red Blood Cell (RBC) Count 3.43 mill/uL (4.70-6.10)
[2024-04-17 03:58] LABS: Vancomycin, Random 24.5 ug/mL (See Comment)
[2024-04-17 04:00] LABS: Anion Gap 11 mmol/L (10-20); BUN (Urea Nitrogen) 20 mg/dL (8.9-20.6); Calc. Creatinine Clearance 221 mL/min (70-130); Calcium 8.7 mg/dL (7.8-10.44); Carbon Dioxide 22 mmol/L (22-29); Chloride 107 mmol/L (98-107); Estimated GFR 125; Glucose 101 mg/dL (70-105); Potassium 3.1 mmol/L (3.5-5.1); Sodium 137 mmol/L (136-145)
[2024-04-17 04:01] LABS: CRP,High Sensitivity (Inhouse) 8.83 mg/dL (< or = 0.5)
[2024-04-17] MEDS: Vancomycin (BATCH) 1.25 GM in Premix 1 BAG IVPB SCH (05:47)
[2024-04-17] MEDS: Aspirin Chewable 81 MG TAB PER TUBE SCH (09:12)
[2024-04-17] MEDS: Amlodipine 5 MG TAB PER TUBE SCH (09:12)
[2024-04-17] MEDS: Folic Acid 1 MG TAB PER TUBE SCH (09:12)
[2024-04-17] MEDS: Electrolyte Replacement Protocol 1 EACH FS ONE (09:13)
[2024-04-17] MEDS: predniSONE 20 MG TAB PER TUBE SCH (09:13)
[2024-04-17] MEDS: Potassium Chloride 40 MEQ in Premix 1 BAG IVPB SCH (09:20)
[2024-04-17] MEDS: Lansoprazole 30 MG/10 ML UDCUP PER TUBE SCH (09:41)
[2024-04-17 13:45] LABS: Potassium 3.8 mmol/L (3.5-5.1)
[2024-04-17] MEDS: Vancomycin (BATCH) 1.5 GM in Premix 1 BAG IVPB SCH (17:54)
[2024-04-18 05:49] LABS: Vancomycin, Random 15.6 ug/mL (See Comment)
[2024-04-18 06:57] LABS: Glucose 120 mg/dL (70-105)
[2024-04-18] MEDS: metroNIDAZOLE 500 MG in Premix 1 BAG IVPB SCH (14:36)
[2024-04-18] MEDS: Vancomycin (BATCH) 1.25 GM in Premix 1 BAG IVPB SCH (17:32)
[2024-04-18] MEDS: Acetaminophen 325 MG TAB PO PRN (23:43)
[2024-04-18] MEDS: Melatonin 3 MG TAB PER TUBE PRN (23:43)
[2024-04-19 06:27] LABS: Vancomycin, Random 14.6 ug/mL (See Comment)
[2024-04-19 06:32] LABS: Anion Gap 11 mmol/L (10-20); BUN (Urea Nitrogen) 18 mg/dL (8.9-20.6); Calc. Creatinine Clearance 243 mL/min (70-130); Calcium 8.8 mg/dL (7.8-10.44); Carbon Dioxide 21 mmol/L (22-29); Chloride 109 mmol/L (98-107); Estimated GFR 129; Glucose 84 mg/dL (70-105); Sodium 138 mmol/L (136-145)
[2024-04-19 07:22] LABS: Band 4 % (5-11); Myelocyte 1 % (0-0); Plasma Cells 0 % (0-0)
[2024-04-19 07:23] LABS: Lymphocytes 24 % (21-51); Monocytes 8 % (0-10); Neutrophil 63 % (42-75)
[2024-04-19 07:26] LABS: Hematocrit 31.1 % (42.0-52.0); Hemoglobin 10.9 g/dL (14.0-18.0); Mean Corpuscular Volume 91.2 fL (78.0-98.0); Mean Platelet Volume 9.5 fL (7.4-10.4); Platelet Count 229 10x3/uL (130-400); RBC Distribution Width 15.6 % (11.5-14.5); Red Blood Cell (RBC) Count 3.41 mill/uL (4.70-6.10)
[2024-04-19] MEDS ORDERED: predniSONE 20 MG TAB PER TUBE SCH (10:14)
[2024-04-19] MEDS: predniSONE 5 MG TAB PER TUBE SCH (12:10)
[2024-04-19] MEDS ORDERED: Vancomycin (BATCH) 1.5 GM in Premix 1 BAG IVPB SCH (18:00)
[2024-04-20 07:43] LABS: Hematocrit 31.5 % (42.0-52.0); Hemoglobin 10.8 g/dL (14.0-18.0); Mean Corpuscular HGB CONC 34.3 g/dL (32.0-36.0); Mean Corpuscular Hemoglobin 31.4 pg (27.0-31.0); Mean Corpuscular Volume 91.6 fL (78.0-98.0); Mean Platelet Volume 9.4 fL (7.4-10.4); Platelet Count 221 10x3/uL (130-400); RBC Distribution Width 15.7 % (11.5-14.5); Red Blood Cell (RBC) Count 3.44 mill/uL (4.70-6.10)
[2024-04-20 07:56] LABS: Anion Gap 10 mmol/L (10-20); BUN (Urea Nitrogen) 14 mg/dL (8.9-20.6); Calc. Creatinine Clearance 245 mL/min (70-130); Calcium 8.5 mg/dL (7.8-10.44); Carbon Dioxide 22 mmol/L (22-29); Chloride 108 mmol/L (98-107); Estimated GFR 128; Glucose 109 mg/dL (70-105); Potassium 2.9 mmol/L (3.5-5.1); Sodium 137 mmol/L (136-145)
[2024-04-20] MEDS: predniSONE 5 MG TAB PER TUBE SCH (08:20)
[2024-04-20 08:28] LABS: Band 3 % (5-11); Eosinophils 1 % (0-10); Lymphocytes 9 % (21-51); Monocytes 5 % (0-10); Neutrophil 82 % (42-75); Platelet Adequacy Comment Platelets Normal; Polychromasia SLIGHT = 2-3 cells HPF (0-2)
[2024-04-20] MEDS ORDERED: Electrolyte Replacement Protocol 1 EACH FS SCH (10:15)
[2024-04-20] MEDS: Potassium Chloride 20 MEQ TAB PER TUBE SCH (10:37)
[2024-04-20] MEDS: Potassium Bicarbonate/Cit Ac 20 MEQ TAB PO SCH (10:42)
[2024-04-20] MEDS ORDERED: Electrolyte Replacement Protocol FS PRN (10:45)
[2024-04-20 12:14] LABS: Magnesium 1.9 mg/dL (1.6-2.6)
[2024-04-20] MEDS: Magnesium 2 GM/50 ML(in water) 2 GM in Premix 1 BAG IVPB SCH (13:59)
[2024-04-20 21:30] LABS: Potassium 3.9 mmol/L (3.5-5.1)
[2024-04-21 06:07] LABS: Anion Gap 13 mmol/L (10-20); BUN (Urea Nitrogen) 17 mg/dL (8.9-20.6); Calc. Creatinine Clearance 255 mL/min (70-130); Calcium 8.9 mg/dL (7.8-10.44); Carbon Dioxide 24 mmol/L (22-29); Chloride 108 mmol/L (98-107); Estimated GFR 129; Glucose 104 mg/dL (70-105); Potassium 3.8 mmol/L (3.5-5.1); Sodium 141 mmol/L (136-145)
[2024-04-21 06:20] LABS: Hematocrit 34.3 % (42.0-52.0); Hemoglobin 11.8 g/dL (14.0-18.0); Mean Corpuscular HGB CONC 34.4 g/dL (32.0-36.0); Mean Corpuscular Hemoglobin 31.4 pg (27.0-31.0); Mean Corpuscular Volume 91.2 fL (78.0-98.0); Mean Platelet Volume 9.5 fL (7.4-10.4); Platelet Count 239 10x3/uL (130-400); RBC Distribution Width 16.1 % (11.5-14.5); Red Blood Cell (RBC) Count 3.76 mill/uL (4.70-6.10)
[2024-04-21] MEDS: CEFAZOLIN 2 GM in Sodium Chloride 0.9% 100 ML IVPB SCH (07:24)
[2024-04-21 09:32] LABS: Band 2 % (5-11); Lymphocytes 9 % (21-51); Monocytes 9 % (0-10); Neutrophil 78 % (42-75); Platelet Adequacy Comment Platelets Normal; RBC Morphology Within Normal Limits; Reactive Lymphocytes 1 % (0-10)
[2024-04-22 06:41] LABS: #Basophils 0.03 10x3/uL (0.0-0.2); %Basophils 0.4 % (0.0-1.0); %Lymphocytes 17.3 % (21.0-51.0); %Monocytes 10.6 % (0.0-10.0); Hematocrit 33.9 % (42.0-52.0); Hemoglobin 11.6 g/dL (14.0-18.0); Mean Corpuscular HGB CONC 34.2 g/dL (32.0-36.0); Mean Corpuscular Hemoglobin 31.4 pg (27.0-31.0); Mean Corpuscular Volume 91.6 fL (78.0-98.0); Mean Platelet Volume 9.5 fL (7.4-10.4); Platelet Count 227 10x3/uL (130-400); RBC Distribution Width 16.4 % (11.5-14.5)
[2024-04-22 06:55] LABS: Anion Gap 11 mmol/L (10-20); BUN (Urea Nitrogen) 21 mg/dL (8.9-20.6); Calc. Creatinine Clearance 240 mL/min (70-130); Calcium 8.9 mg/dL (7.8-10.44); Carbon Dioxide 25 mmol/L (22-29); Chloride 108 mmol/L (98-107); Estimated GFR 128; Glucose 96 mg/dL (70-105); Potassium 3.5 mmol/L (3.5-5.1); Sodium 140 mmol/L (136-145)
[2024-04-22] MEDS: Potassium Chloride 20 MEQ TAB PO SCH (08:53)
[2024-04-23 06:54] LABS: Anion Gap 13 mmol/L (10-20); BUN (Urea Nitrogen) 14 mg/dL (8.9-20.6); Calc. Creatinine Clearance 254 mL/min (70-130); Calcium 8.8 mg/dL (7.8-10.44); Carbon Dioxide 23 mmol/L (22-29); Chloride 106 mmol/L (98-107); Estimated GFR 131; Glucose 100 mg/dL (70-105); Magnesium 1.9 mg/dL (1.6-2.6); Potassium 3.7 mmol/L (3.5-5.1); Sodium 138 mmol/L (136-145)
[2024-04-23] MEDS: Magnesium 2 GM/50 ML(in water) 2 GM in Premix 1 BAG IVPB SCH (08:11)
[2024-04-23] MEDS ORDERED: Sodium Bicarbonate 2.5 MEQ/5 ML SDV ONE (10:11)
[2024-04-23] MEDS ORDERED: Lidocaine 1% PF 5 ML VIAL ONE (10:11)
[2024-04-23] MEDS: Insulin Lispro 100 UNIT/ML 10 ML VIAL SC PRN (13:00)
[2024-04-23] MEDS: Labetalol HCl 100 MG TAB PER TUBE SCH (15:06)
[2024-04-24 05:04] LABS: Anion Gap 12 mmol/L (10-20); BUN (Urea Nitrogen) 15 mg/dL (8.9-20.6); Calc. Creatinine Clearance 232 mL/min (70-130); Calcium 8.7 mg/dL (7.8-10.44); Carbon Dioxide 24 mmol/L (22-29); Chloride 105 mmol/L (98-107); Estimated GFR 127; Glucose 93 mg/dL (70-105); Phosphorus 2.9 mg/dL (2.3-4.7); Potassium 3.5 mmol/L (3.5-5.1); Sodium 137 mmol/L (136-145)
[2024-04-24] MEDS: Potassium Bicarbonate/Cit Ac 20 MEQ TAB PER TUBE SCH (09:07)
[2024-04-24] MEDS: Magnesium 2 GM/50 ML(in water) 2 GM in Premix 1 BAG IVPB SCH (09:08)
[2024-04-24 13:32] LABS: Potassium 4.1 mmol/L (3.5-5.1)
[2024-04-25 08:00] LABS: Magnesium 1.9 mg/dL (1.6-2.6)
[2024-04-25] MEDS: Magnesium 2 GM/50 ML(in water) 2 GM in Premix 1 BAG IVPB SCH (10:49)
[2024-04-26 06:09] LABS: Magnesium 2.1 mg/dL (1.6-2.6)
[2024-04-26 14:57] VITALS: BMI 32.8
[2024-04-28 08:47] VITALS: BP 120/80
[2024-04-28 13:04] VITALS: TEMP 97.5
== END 2024-04-28 15:00 | DRG 314 ==
LOC: ERS 18:43 → IMCU/EMU 22:18
PROVIDERS: ADMIT Student in an Organized Health Care Education/Training Program; ATTEND Internal Medicine
PROC: 0T9B70Z Drainage of Bladder with Drainage Device, Via Natural or Artificial Opening (ICD-10-PCS; principal; 2024-04-15)
PROC: 3E03329 Introduction of Other Anti-infective into Peripheral Vein, Percutaneous Approach (ICD-10-PCS; 2024-04-15)
PROC: 02HV33Z Insertion of Infusion Device into Superior Vena Cava, Percutaneous Approach (ICD-10-PCS; 2024-04-23)
PROC: B5181ZA Fluoroscopy of Superior Vena Cava using Low Osmolar Contrast, Guidance (ICD-10-PCS; 2024-04-23)
DX: T80.211A Bloodstream infection due to central venous catheter, initial encounter (principal); A41.01 Sepsis due to Methicillin susceptible Staphylococcus aureus; J69.0 Pneumonitis due to inhalation of food and vomit; G93.41 Metabolic encephalopathy; J96.00 Acute respiratory failure, unspecified whether with hypoxia or hypercapnia; R53.2 Functional quadriplegia; I63.81 Other cerebral infarction due to occlusion or stenosis of small artery; D84.9 Immunodeficiency, unspecified; Z98.890 Other specified postprocedural states; Z79.899 Other long term (current) drug therapy; Z79.82 Long term (current) use of aspirin; Z74.01 Bed confinement status; D86.89 Sarcoidosis of other sites; I10 Essential (primary) hypertension; G40.909 Epilepsy, unspecified, not intractable, without status epilepticus; D64.9 Anemia, unspecified; Z66 Do not resuscitate; Z51.5 Encounter for palliative care; Z79.4 Long term (current) use of insulin; E87.6 Hypokalemia
CPT/HCPCS: 36415; 36416; 36569; 51701; 70450; 71045; 71275; 74177; 76937; 77001; 80048; 80177; 80202; 81001; 82565; 82947; 83605; 83735; 84100; 84145; 84484; 85025; 86141; 87040; 87077; 87149; 87186; 93005; 93306; 94640; 96365; 96368; 96375; C1751; J0692; J1650; J1815; J1956; J2470; J3370; J3475; J3480; J3490; J7512; J7620; Q9967

== ENCOUNTER 2024-07-21 14:28 | Emergency (ER) | payer BC ==
[2024-07-21 15:13] LABS: #Basophils Less than 0.03 10x3/uL (0.0-0.2); %Basophils 0.3 % (0.0-1.0); %Eosinophils 2.1 % (0.0-10.0); %Monocytes 10.9 % (0.0-10.0); %Neutrophils 71.9 % (42.0-75.0); Hemoglobin 13.7 g/dL (14.0-18.0); Mean Corpuscular HGB CONC 33.4 g/dL (32.0-36.0); Mean Corpuscular Hemoglobin 30.1 pg (27.0-31.0); Mean Corpuscular Volume 90.1 fL (78.0-98.0); Mean Platelet Volume 9.8 fL (7.4-10.4); Platelet Count 285 10x3/uL (130-400); RBC Distribution Width 13.9 % (11.5-14.5); Red Blood Cell (RBC) Count 4.55 mill/uL (4.70-6.10)
[2024-07-21 15:19] LABS: Actual Bicarbonate (HCO3v) 27.6 mEq/L (22-28); Base Excess 1.4 mEq/L (-2.0 to +3.0); Calcium, Ionized (venous) 1.19 mmol/L (1.16-1.32); Chloride (VBG) 100 mmol/L (98-106); Hematocrit-VBG 42 % (42.0-52.0); Hemoglobin (Hb) 14.3 g/dL (13.2-17.3); Potassium (VBG) 3.64 mmol/L (3.70-5.30); Sodium 139 mmol/L (133-146); pH (venous) 7.363 (7.32-7.43)
[2024-07-21] MEDS ORDERED: Cefepime 2 GM VIAL ONE (15:19)
[2024-07-21] MEDS ORDERED: Sodium Chloride 0.9% 100 ML ONE (15:19)
[2024-07-21] MEDS ORDERED: Vancomycin (BATCH) 2 GM in Premix 1 BAG IVPB SCH (15:30)
[2024-07-21 16:03] LABS: ALT (SGPT) 26 U/L (8-55); AST (SGOT) 27 U/L (5-34); Albumin 3.2 g/dL (3.5-5.0); Alkaline Phosphatase 139 U/L (40-110); Anion Gap 14 mmol/L (10-20); BUN (Urea Nitrogen) 13 mg/dL (8.9-20.6); Bilirubin, Total 0.5 mg/dL (0.2-1.2); Calc. Creatinine Clearance 0 mL/min (70-130); Calcium 9.3 mg/dL (7.8-10.44); Carbon Dioxide 25 mmol/L (22-29); Chloride 102 mmol/L (98-107); Estimated GFR 122; Glucose 92 mg/dL (70-105); Magnesium 2.1 mg/dL (1.6-2.6); Potassium 3.7 mmol/L (3.5-5.1); Protein, Total 7.2 g/dL (6.0-8.3); Sodium 137 mmol/L (136-145); Troponin I 0.011 ng/mL (< 0.028)
[2024-07-21 16:07] LABS: Bacteria/HPF 2+ HPF (None Seen); Bilirubin Negative (Negative); Blood, Urine 1+ (Negative); CAUTI Indications for Culture Fever or rigors; Clarity Clear (Clear); Glucose, Urine (Dipstick) Normal (Negative); Ketone, Urine Negative (Negative); Leukocyte 250 Leu/uL (Negative); Nitrite Negative (Negative); Protein, Urine (Dipstick) Negative (Neg-Trace); RBC/HPF 0-3 HPF (0-3); Specific Gravity, Urine 1.004 (1.002-1.036); Squamous Epithelial None Seen HPF (0-3)
[2024-07-21 16:11] LABS: Urine Culture Reflex Yes Yes
== END 2024-07-21 19:20 | disposition home or self-care (01) ==
LOC: ERS 14:28
DX: N39.0 Urinary tract infection, site not specified (principal); R06.02 Shortness of breath
CPT/HCPCS: 71045; 80053; 81001; 82805; 83605; 83735; 84484; 85025; 87040; 87077; 87086; 87186; 93005; 96365; 96367; J0692; J3370